=== PATIENT | female | born 1965 | race Caucasian/White ===

== ENCOUNTER 2023-05-29 12:51 | Emergency (ER) | payer BC, SELFPAY ==
[2023-05-29 12:55] VITALS: BP 194/104
[2023-05-29 13:16] LABS: % Basophils 0.5 % (0-2); % Eosinophils 1.5 % (0-6); % Immature Granulocytes 0.1 % (0-0.5); % Lymphocytes 18.2 % (20.5-51.1); % Monocytes 8.6 % (1.7-9.3); % Neutrophils 71.1 % (42.2-75.2); Absolute Eosinophils 0.1 10^3/uL (0-0.7); Absolute Lymphocytes 1.3 10^3/uL (1.2-3.4); Absolute Monocytes 0.6 10^3/uL (0.1-0.6); Absolute Neutrophils 5.2 10^3/uL (1.4-6.5); Hematocrit 37.9 % (37.0-47.0); Hemoglobin 13.2 g/dL (12.0-16.0); Mean Corp Hgb Conc. 34.8 g/dL (33.0-37.0); Mean Corpuscular Hgb 30.1 pg (27.0-31.0); Mean Corpuscular Volume 86.3 fL (81.0-99.0); Mean Platelet Volume 8.4 fL (7.4-10.4); Nucleated Red Blood Cells % 0 %; Platelet Count 347 10^3/uL (130-400); Red Blood Cell Count 4.39 10^6/uL (4.20-5.40); Red Cell Dist. Width 12.5 % (11.5-14.5); White Blood Cell Count 7.3 10^3/uL (4.8-10.8)
[2023-05-29 13:28] LABS: ALT (SGPT) 30 U/L (0-35); AST (SGOT) 35 U/L (14-36); Albumin 4.3 g/dl (3.5-5.0); Alkaline Phosphatase 75 U/L (38-126); Blood Urea Nitrogen 16 mg/dl (7-17); Calcium 9.3 mg/dl (8.4-10.2); Carbon Dioxide 25 mmol/L (22-30); Chloride 105 mmol/L (98-107); Glucose 191 mg/dl (70-99); Potassium 3.8 mmol/L (3.5-5.1); Sodium 137 mmol/L (135-145); Total Bilirubin 0.5 mg/dl (0.2-1.3); Total Protein 6.9 g/dl (6.3-8.2); eGFR > 60.00
[2023-05-29 13:38] LABS: Troponin I < 0.012 ng/ml
[2023-05-29 14:40] VITALS: BP 179/89
--- NOTE | 2023-05-29 15:13 | ED.GENMED ---
History of Present Illness
<Siri Fraire PA-C - Last Filed: 05/29/23 18:26>
General
Chief Complaint: Blood Pressure Problem
Source: patient
Exam Limitations: none
Time Seen by Provider: 05/29/23 15:09
Nursing documentation reviewed up to this point in time: agreed with
Travel History
Have you had any contact with someone who has COVID-19?: No
Do you have any symptoms of coronavirus? Fever > 100 degrees, chills, cough, shortness of breath, sore throat, loss of taste or smell, muscle aches, or headache?: No
History of Present Illness
History of Present Illness:
This is a 58-year-old female with a past medical history of hypertension, hypothyroidism hyperlipidemia resents to the emergency department today with chest discomfort high blood pressure. She states that the pain started yesterday when she was
sitting at home. She states that the pain feels like a pressure on her chest and is constant. She states that she has never had pain like this before. It is non-positional non-pleuritic. She also has associated occasional shortness of breath and
fatigue. She states that she always has high blood pressure, and it has always been uncontrolled despite being on multiple medications. She denies abdominal pain, back pain, nausea, vomiting, fevers, chills. She does have associated cough but no
other URI symptoms. She states that she used to use cigarettes frequently but has stopped within the last few years. She does not use alcohol. She does have a family history of heart disease in her father, brother, and grandmother. She states
that her father having heart disease in his 40s. Patient herself had an abnormal stress test for many years ago, and was sent for a coronary artery catheterization which showed no blockages. Patient has not seen a farm contractor since.
Past History
<Siri Fraire PA-C - Last Filed: 05/29/23 18:26>
Past History
ED Past Medical History: Asthma, HTN, Hypercholesterolemia, Hypothyroidism and Other (IBS)
ED Past Surgical History: Cholecystectomy, Gynecological (Partial Hysterectomy) and Orthopedic
Social History
Tobacco: Former smoker
Alcohol: None
Drug: None
Personal:
Living: with family
Employment: Employed
Review of Systems
<Siri Fraire PA-C - Last Filed: 05/29/23 18:26>
Review of Systems
All Other Systems: ROS reviewed and negative except as documented in HPI and ROS
Phy Exam
<Siri Fraire PA-C - Last Filed: 05/29/23 18:26>
Physical Exam
Physical Exam:
General: Patient appears well and is in no acute distress
Skin: warm and dry, no rashes or lesions
Cardiac: regular rate and rhythm, no murmurs. No tenderness to palpation of the external chest wall
Pulm: normal respiratory effort, no wheezes, rales or rhonci
Abdomen: no abdominal tendernes s
Scores
<Siri Fraire PA-C - Last Filed: 05/29/23 18:26>
Heart Score for Chest Pain Patients
STEMI patient?: No
History: Slightly or Non-Suspicious
ECG: Normal
Age: >45 - <65 years
Risk Factors: 1 or 2 Risk Factors
Troponin: </= Normal Limit
Heart Score for Chest Pain Patients: 2
Heart Score Risk: 2.5% MACE over next 6 weeks
PE Wells Score
Symptoms of DVT: No
No alternative diagnosis better explains the illness: No
Tachycardia with pulse > 100: No
Immobilization (>=3 days) or surgery within previous 4 weeks: No
Prior history of DVT or pulmonary embolism: Yes
Presence of hemoptysis: No
Presence of malignancy: No
Pulmonary Embolism Risk Score: 1.5
Probability of PE: Pt is low risk
<Aston Conrad DO - Last Filed: 05/29/23 19:41>
Heart Score for Chest Pain Patients
Heart Score for Chest Pain Patients: 2
Heart Score Risk: 2.5% MACE over next 6 weeks
PE Wells Score
Pulmonary Embolism Risk Score: 1.5
Probability of PE: Pt is low risk
Course
<Siri Fraire PA-C - Last Filed: 05/29/23 18:26>
Orders/Labs/Results
Orders:
Orders
05/29/23 12:56
Electrocardiogram (*1) Urgent
Reason for Study: Chest Pain
05/29/23 13:07
Complete Blood Count/With Diff Urgent
Comprehensive Metabolic Panel Urgent
Troponin I Urgent
05/29/23 15:37
Aspirin 325 mg PO NOW STA
CR Chest - 2 Views Urgent
Comment:
Reason For Exam: chest pain, SOB
05/29/23 15:42
Vital Signs- Treatment ONCE
Frequency: Once
Comment: blood pressure recheck
Abnormal Lab Results
05/29/23
13:07
Lymphocytes % 18.2 L %
(20.5-51.1)
Creatinine 0.5 L mg/dL
(0.6-1.0)
Glucose 191 H mg/dl
(70-99)
05/29/23 13:07
05/29/23 13:07
Vital Signs
Initial and Last Documented VS:
Initial Vital Signs
Temp Pulse Resp BP Pulse Ox
98.1 F 91 18 194/104 98
05/29/23 12:55 05/29/23 12:55 05/29/23 12:55 05/29/23 12:55 05/29/23 12:55
Last Documented Vital Signs
Temp Pulse Resp BP Pulse Ox
98.1 F 79 17 164/84 99
05/29/23 12:55 05/29/23 15:51 05/29/23 15:51 05/29/23 15:51 05/29/23 15:51
<Aston AdrianoPrincess Conrad, DO - Last Filed: 05/29/23 19:41>
Orders/Labs/Results
Orders:
Orders
05/29/23 12:56
Electrocardiogram (*1) Urgent
Reason for Study: Chest Pain
05/29/23 13:07
Complete Blood Count/With Diff Urgent
Comprehensive Metabolic Panel Urgent
Troponin I Urgent
05/29/23 15:37
Aspirin 325 mg PO NOW STA
CR Chest - 2 Views Urgent
Comment:
Reason For Exam: chest pain, SOB
05/29/23 15:42
Vital Signs- Treatment ONCE
Frequency: Once
Comment: blood pressure recheck
Abnormal Lab Results
05/29/23
13:07
Lymphocytes % 18.2 L %
(20.5-51.1)
Creatinine 0.5 L mg/dL
(0.6-1.0)
Glucose 191 H mg/dl
(70-99)
05/29/23 13:07
05/29/23 13:07
Vital Signs
Initial and Last Documented VS:
Initial Vital Signs
Temp Pulse Resp BP Pulse Ox
98.1 F 91 18 194/104 98
05/29/23 12:55 05/29/23 12:55 05/29/23 12:55 05/29/23 12:55 05/29/23 12:55
Last Documented Vital Signs
Temp Pulse Resp BP Pulse Ox
98.1 F 79 17 164/84 99
05/29/23 12:55 05/29/23 15:51 05/29/23 15:51 05/29/23 15:51 05/29/23 15:51
<Siri Fraire PA-C - Last Filed: 05/29/23 18:26>
MDM/Problems Addressed
Differential Diagnosis Includes:
Differentials include ACS, GERD, PE, musculoskeletal sprain/strain, pneumonia
MDM/Problems Addressed:
Chest discomfort
Chronic conditions affecting care: HTN, Asthma, Psychiatric illness and Other (hypothyroidism)
<Siri Fraire PA-C - Last Filed: 05/29/23 18:26>
*Pulse Oximetry
Patient hypoxic: no
*EKG
Interpreted by ED Provider?: Yes
EKG Intrepretation Date: 05/29/23
Interpretation: normal
Comparison EKG: changes noted
Heart Rate: 87
Rate: normal
Rhythm: sinus
[place]: normal axis
Interval: long QT
QRS Pattern: normal QRS
Ischemia: no ischemia
*Critical Care Note
Total Time (30-74mins, 75-104mins- exclusive of procedures): Not Applicable
Data Reviewed
Review of Other/Old Records Reveals: Discharge Summary (Reviewed discharge summary from 04/03/2022, patient was hospitalized with abdominal pain with intractable vomiting)
Prescriptions/Medications Considered But Not Given:
n/a
Further Testing Considered But Not Given:
Considered obtaining D-dimer however patient clinical picture does not correlate with PE, does not have any risk factors, and she is low risk via Wells score
<Siri Fraire PA-C - Last Filed: 05/29/23 18:26>
Patient Management
Escalation/DeEscalation of care consider admission/obs:
This is a 58-year-old female with a past medical history of hypothyroidism, asthma, hypertension, lifting presents emergency department today with 2 days of chest pain and concerned about rib blood pressure. He describes her pain as a pressure
which is constant. She has not had pain like this before. On physical exam, she is hypertensive however not tachycardic and not hypoxic. Physical exam is unremarkable, her chest pain is not reproducible on exam, she has no murmur, and her lung
sounds are clear to auscultation bilaterally. Patient states that her blood pressure has never been optimally controlled and she states that her blood pressure at home is always elevated despite the use of multiple hypertensive agents. Patient
does not follow with a farm contractor. We discharged her with the chest pain hotline CBC follow-up and advise her to call the number she has not per mobile application tester. We also advised her to start taking 600 mg of labetalol daily until she sees the
farm contractor. Patient is medically stable for discharge.
ED Attending Note
<Siri Fraire PA-C - Last Filed: 05/29/23 18:26>
-
Portions of this chart may have been created with voice recognition software.� Occasional wrong word or��sound alike� substitutions may have occurred due to the inherent limitations of voice recognition software.
<Aston Conrad DO - Last Filed: 05/29/23 19:41>
ED Attending Note
Patient seen and examined by attending physician: Yes
I performed the substantive portion of visit, reviewed & personally made and approve the management plan that is documented in note by myself or ALLAN.: Yes
ED Attending Note:
I agree with bettye note
Patient presents with elevated blood pressure and vague chest discomfort. Patient's symptoms have been present since yesterday. Nothing seems to make the chest discomfort better or worse. She was at a supervisor incising office yesterday where they
noted her blood pressure to be elevated. They recommend she measure her blood pressure and follow-up with primary care doctor. This morning she took her blood pressure and it was in the 190s prompting her to call her primary. They referred her to
the emergency room. Patient denies any recent periods of immobilization, hospitalization or long travel.
General: Awake, Alert, Oriented X3. No acute distress.
Vitals: Most recent BP 164/84
Head: Atraumatic
Eyes: Pupils equal, EOMI
Throat: Airway intact, no exudates
Neck: Trachea midline
Lungs: Clear and equal b/l
Heart: Regular rate, no murmurs
Abd: Soft, Nontender, No pulsatile mass
Neuro: Cranial nerves intact, muscle strength equal bilaterally, cerebellar exam normal
Skin: Warm, dry, no rash
Extremities: pulses equal b/l, no edema
Hypertension which is not well-controlled. Troponin is normal. Patient has been having discomfort since yesterday and so repeat troponin not necessary. We will have patient follow cardiology. She is on at least 3 medications for hypertension and
it is not well-controlled so I will feel she needs evaluation for secondary causes of hypertension. Patient will increase labetalol to 300 mg twice a day until she is able to follow-up with cardiology and her primary
Discharge Plan
Departure
Patient Disposition: Home (Routine Discharge)
Date of Disposition: 05/29/23
Time of Disposition: 16:55
Patient with high blood pressure during this ER visit?: Yes
Discharge Problem:
Chest pain
Instructions: High Blood Pressure (DC), Chest Pain CBC Follow Up
Prescriptions:
No Action
tramadol 50 MG tablet
100 mg PO DAILYPRN PRN (Reason: severe pain)
zolpidem 10 MG tablet
10 mg PO HSPRN PRN (Reason: insomnia)
fluoxetine 20 MG capsule
40 mg PO DAILY
fenofibrate nanocrystallized 145 MG tablet
145 mg PO HS
multivitamin with folic acid [Tab-A-Al] 1 TABLET tablet
1 tab PO DAILY
levothyroxine 75 mcg Tablet
75 mcg PO DAILY AT 0700
carbamazepine 200 mg Tablet
200 mg PO HS
amlodipine [Norvasc] 10 mg Tablet
10 mg PO BID
pantoprazole [Protonix] 40 mg Tablet,Delayed Release (Dr/Ec)
40 mg PO BID
montelukast [Singulair] 10 mg Tablet
10 mg PO DAILY
losartan 100 mg Tablet
100 mg PO DAILY
labetalol 200 mg Tablet
200 mg PO BID
diclofenac sodium 1 % Gel
1 ea TOPICAL DAILYPRN PRN (Reason: knees, hands, lower back)
Anoro Ellipta 62.5-25 mcg/actuation Blister With Device
1 inh INHALATION R DAILY
Medical Marijuana
1 puff inhalation BIDPRN PRN (Reason: body pain)
dicyclomine 20 mg Tablet
20 mg PO QID Qty: 80 0RF
prochlorperazine maleate [Compazine] 5 mg tablet
5 mg PO TID PRN (Reason: nausea and vomiting) Qty: 30 0RF
Referrals:
Clay Goldman DO [Family Provider] -
Activity Restrictions/Additional Instructions:
As discussed, please follow up with cardiology, you will receive a call to set up an appointment. Please begin taking 300 mg of your labetolol twice a day until you have follow up with your farm contractor.
Please call the number you have for the mobile application tester for an appointment.
Please return to the emergency department should you experience worsening of your symptoms, chest pain that does not resolve, worsening shortness of breath, lightheadedness, dizziness, motor weakness, back pain, other concerning signs or symptoms.
Interventions
Interventions:
*Risk Screen - Suicide Last Done: 05/29/23 12:55
*General Assessment Last Done: 05/29/23 14:40
*Neglect/Abuse Screening Last Done: 05/29/23 12:55
*ED COVID-19 Vaccine History Last Done: 05/29/23 12:55
*Nursing Disposition Last Done: 05/29/23 17:00
ED- Cardiac Assessment Last Done: 05/29/23 14:40
ED- Neurological Assessment Last Done: 05/29/23 14:40
ED- Pulmonary Assessment Last Done: 05/29/23 14:40
Discharge Date and Time
Discharge Date/Time: 05/29/23 17:01
[2023-05-29] MEDS: ASPIRIN 325 MG PO (15:41)
[2023-05-29 15:51] VITALS: BP 164/84
== END 2023-05-29 17:01 | disposition home or self-care (01) ==
LOC: EMR 12:51
PROVIDERS: Emergency Medicine; EMERGENCY PHYSICIAN Emergency Medicine; FAMILY PHYSICIAN Internal Medicine
DX: R07.89 Other chest pain (principal); I10 Essential (primary) hypertension; E03.9 Hypothyroidism, unspecified; E78.00 Pure hypercholesterolemia, unspecified; Z87.891 Personal history of nicotine dependence
CPT/HCPCS: 99285; 71046; 80053; 84484; 85025; 93005

== ENCOUNTER → 2023-06-07 11:50 | Outpatient (REF) | payer BC, SELFPAY | LOC: DHCBC/DCA 11:50 | PROVIDERS: ATTENDING PHYSICIAN Internal Medicine Cardiovascular Disease; FAMILY PHYSICIAN Internal Medicine | DX: R07.2 Precordial pain (principal) | CPT/HCPCS: 78452; 93017; A9500; J2785 ==

== ENCOUNTER → 2023-06-19 12:53 | Outpatient (REF) | payer BC, SELFPAY | LOC: DHCBC HW 12:53 | PROVIDERS: ATTENDING PHYSICIAN Internal Medicine Cardiovascular Disease; FAMILY PHYSICIAN Internal Medicine | DX: R07.2 Precordial pain (principal); R06.00 Dyspnea, unspecified | CPT/HCPCS: 93306 ==

== ENCOUNTER 2024-02-06 22:54 | Observation (INO) | payer BC, SELFPAY ==
[2024-02-06] VITALS (7 sets, daily range): BP systolic 145–186; BP diastolic 79–103; BMI 32.6
--- NOTE | 2024-02-06 16:36 | ED.GENMED ---
ED Provider Triage
<Janina Barajas PA-C - Last Filed: 02/06/24 16:38>
-
Patient seen by provider in Triage?: Seen in Triage
Attestation: A medical screening examination has been initiated by a qualified medical provider. Based on the assessment performed at this time, it has been determined that an emergent medical condition may exist and the patient has been informed
that further medical evaluation and possible additional diagnostic testing may be needed.
HPI: 59yoF here with nausea, dry heaving, abdominal pain, chest pain, and generalized weakness x 2 days. Received a Mounjaro shot 2 days ago which she has been taking since July. Hx of similar reaction to Ozempic for which she was reportedly
hospitalized for 10 days.
GENERAL: Alert , in no apparent distress
EYE: No visual abnormalities.
NECK: Trachea midline
ENT: No visible abnormalities.
LUNGS: No acute respiratory distress
NEUROLOGICAL: Alert and oriented
SKIN: Skin intact. No visible changes.
MUSCULOSKELETAL: Moving extremities normally
PSYCH: Normal and appropriate interaction.
This is a medical evaluation conducted in person to initiate diagnostic evaluation and provide initial therapeutics. Please see further documentation by the treating clinician.
History of Present Illness
<Janina Barajas PA-C - Last Filed: 02/06/24 16:38>
General
Chief Complaint: Abdominal Symptoms
Time Seen by Provider: 02/06/24 18:26
<Nickie Esposito NP - Last Filed: 02/08/24 18:54>
General
Source: patient
Exam Limitations: none
Nursing documentation reviewed up to this point in time: agreed with
History of Present Illness
History of Present Illness:
Patient to ED with complaint of nausea and vomiting x 3 days. Denies fever/chills. States chest and upper abd hurt from vomiting. She reports that she was on ozempic in the past and had a similar reaction. She was changed to Mounjaro in July.
Dose was increased 3 weeks ago but states she missed 2nd dose due to having surgerical procedure to her right arm. Had last dose just prior to her symptoms starting. Brought to ED by spouse for eval.
Past History
<Janina Barajas PA-C - Last Filed: 02/06/24 16:38>
Past History
ED Past Medical History: Asthma, HTN, Hypercholesterolemia, Hypothyroidism and Other (IBS)
ED Past Surgical History: Cholecystectomy, Gynecological (Partial Hysterectomy) and Orthopedic
Social History
Tobacco: Former smoker
Alcohol: None
Drug: None
Personal:
Living: with family
Employment: Employed
Phy Exam
<Nickie Esposito NP - Last Filed: 02/08/24 18:54>
General Physical Exam
General Presentation: moderate distress
General age: appears stated age
General Skin: warm and dry
General Habitus: normal
General Mental: alert
General Hydration: dry mucous membranes
Cardiovascular Exam
Cardiovascular Exam: regular rate/rhythm and no edema
Pulmonary Exam
Pulmonary Exam: lungs clear and no respiratory distress
Gastrointestinal Exam
Gastrointestinal Exam: normal bowel sounds, soft, no organomegaly and non distended
Palpation: generalized: Mild tenderness
Neurological Exam
Neurological Exam: alert, oriented x3, CN II-XII intact and no motor deficits
Musculoskeletal Exam
Musculoskeletal Exam: full ROM (RUE casted) and neuro vasc intact
Skin Exam
Skin Exam: normal color, warm/dry and no rash
Psychiatric Exam
Psychiatric Exam: normal mood/affect
Course
<Janina Barajas PA-C - Last Filed: 02/06/24 16:38>
Orders/Labs/Results
Orders:
Orders
02/06/24 16:23
Electrocardiogram (*1) Urgent
Reason for Study: Chest Pain
EKG- Treatment ONCE
02/06/24 16:38
CT Abd/pelvis W Iv Cont Urgent
Comment:
Reason For Exam: Upper abd pain
CR Chest - 2 Views Urgent
Comment:
Reason For Exam: CP
02/06/24 16:44
Complete Blood Count/With Diff Urgent
Comprehensive Metabolic Panel Urgent
Lipase Urgent
Magnesium Urgent
Troponin I Urgent
02/06/24 19:30
Electrocardiogram (*1) Urgent
Reason for Study: Chest Pain
EKG- Treatment ONCE
0.9% Sodium Chloride 1000 ml [Nss] 1,000 ml IV BOLUS
Ondansetron Injectable [Zofran] 4 mg IV NOW STA
02/06/24 19:39
Troponin I Urgent
02/06/24 20:54
Ketorolac [Toradol] 15 mg IV NOW STA
Prochlorperazine [Compazine] 10 mg IV NOW STA
02/06/24 21:00
0.9% Sodium Chloride 1000 ml [Nss] 1,000 ml IV 125 mls/hr
02/06/24 21:01
Pantoprazole [Protonix IV] 40 mg IV NOW STA
02/06/24 21:02
Potassium Chloride [KCl] 40 meq 0.9% Sodium Chloride 250 ml [Nss] 250 ml IV NOW
02/06/24 21:20
Add On- LAB Urgent
Tests Added?: magnesium
02/06/24 21:44
Admit/Transfer Patient As Directed
Co-Sign Provider:
Level of Care: Observation services
Assign to:: Telemetry
Physician / Group: maggie alegria
Diagnosis: intractable nausea vomiting abd due to likely mounjaro motlity eff,transam
Reason for Telemetry: Arrhythmia
Date to Stop Telemetry: 02/09/24
Time to Stop Telemetry: 11:00
Reason for Hospitalization: intractable nausea vomiting abd due to likely mounjaro motlity eff,transam
Code Status As Directed
Resuscitation Status: Full Code
02/06/24 21:49
PRN Pain Medication Management As Directed
May give lesser potent ordered pain med per pt: Yes
preference::
Protocol:: Medication orders for pain may be administered in a
manner that supports deferring to patient preference
when the pt is:
- Requesting an ordered lesser potent pain medication.
Least to most potent pain medications are defined
as: acetaminophen < NSAID < tramadol < opioids
(morphine, oxycodone, hydromorphone).
- Requesting a lesser dose of the same medication IF
ORDERED.
- Requesting a less intrusive route of administration
if both routes are prescribed by the provider (PO <
IV).
02/06/24 21:52
Potassium Chloride [KCl] 40 meq PO NOW STA
02/06/24 22:03
Consult Notification Routine
Specialty to Notify: Gastroenterology
GASTROINTESTINAL CONSULT Routine
Consulting Provider: Nikko Monsalve
Was physician already notified: No
Reason for consult: intract nausea vomitng after mounjaro increased dose
02/07/24 00:59
Albuterol [ProAIR HFA INHALER] 1 puff INH R Q4HPRN PRN
Trimethobenzamide [Tigan] 200 mg IM Q6HPRN PRN
02/07/24 00:59
Activity As Directed
Activity Level: As Tolerated
Intake/ Output As Directed
Frequency: Per unit guidelines
Pneumatic Compression Sleeves As Directed
Type: Knee high
Vital Signs As Directed
Frequency: Per unit guidelines
DX Deep Vein Thrombosis Video Routine
02/07/24 04:00
0.9% Sodium Chloride 1000 ml [Nss] 1,000 ml IV 100 mls/hr
02/07/24 05:16
Complete Blood Count/With Diff IN AM
02/07/24 06:00
Levothyroxine [Synthroid] 75 mcg PO DAILY @ 0600
02/07/24 08:00
Amlodipine [Norvasc] 10 mg PO DAILY
Budesonide/Formoterol 80/4.5 [Symbicort 80/4.5 Mcg Inhaler] 2 puff INH R BID
Labetalol [Trandate] 300 mg PO BID
Losartan [Cozaar] 100 mg PO DAILY
Pantoprazole [Protonix] 40 mg PO BID
02/07/24 Dinner
Clear Liquid
At Your Request: Full Participation
02/09/24 11:00
DC Protocol for Telemetry ONCE
Abnormal Lab Results
02/06/24
16:44
WBC 12.7 H 10^3/uL
(4.8-10.8)
Plt Count 514 H 10^3/uL
(130-400)
Abs Immat Gran (auto) 0.1 H 10^3/uL
(0-0.05)
Absolute Neuts (auto) 9.4 H 10^3/uL
(1.4-6.5)
Absolute Monos (auto) 1.2 H 10^3/uL
(0.1-0.6)
Lymphocytes % 15.4 L %
(20.5-51.1)
Monocytes % 9.6 H %
(1.7-9.3)
Potassium 3.1 L mmol/L
(3.5-5.1)
Chloride 96 L mmol/L
(98-107)
BUN 24 H mg/dl
(7-17)
Glucose 131 H mg/dl
(70-99)
AST 221 H U/L
(14-36)
ALT 77 H U/L
(0-35)
02/06/24 16:44
02/06/24 16:44
Vital Signs
Initial and Last Documented VS:
Initial Vital Signs
Temp Pulse Resp BP Pulse Ox
98.2 F 105 18 145/103 99
02/06/24 16:20 02/06/24 16:20 02/06/24 16:20 02/06/24 16:20 02/06/24 16:20
Last Documented Vital Signs
Temp Pulse Resp BP Pulse Ox
99.2 F 94 18 158/82 98
02/08/24 17:22 02/08/24 15:00 02/08/24 15:00 02/08/24 15:00 02/08/24 15:00
<Nickie Esposito, STERILE SUPERVISOR - Last Filed: 02/08/24 18:54>
Orders/Labs/Results
Orders:
Orders
02/06/24 16:23
Electrocardiogram (*1) Urgent
Reason for Study: Chest Pain
EKG- Treatment ONCE
02/06/24 16:38
CT Abd/pelvis W Iv Cont Urgent
Comment:
Reason For Exam: Upper abd pain
CR Chest - 2 Views Urgent
Comment:
Reason For Exam: CP
02/06/24 16:44
Complete Blood Count/With Diff Urgent
Comprehensive Metabolic Panel Urgent
Lipase Urgent
Magnesium Urgent
Troponin I Urgent
02/06/24 19:30
Electrocardiogram (*1) Urgent
Reason for Study: Chest Pain
EKG- Treatment ONCE
0.9% Sodium Chloride 1000 ml [Nss] 1,000 ml IV BOLUS
Ondansetron Injectable [Zofran] 4 mg IV NOW STA
02/06/24 19:39
Troponin I Urgent
02/06/24 20:54
Ketorolac [Toradol] 15 mg IV NOW STA
Prochlorperazine [Compazine] 10 mg IV NOW STA
02/06/24 21:00
0.9% Sodium Chloride 1000 ml [Nss] 1,000 ml IV 125 mls/hr
02/06/24 21:01
Pantoprazole [Protonix IV] 40 mg IV NOW STA
02/06/24 21:02
Potassium Chloride [KCl] 40 meq 0.9% Sodium Chloride 250 ml [Nss] 250 ml IV NOW
02/06/24 21:20
Add On- LAB Urgent
Tests Added?: magnesium
02/06/24 21:44
Admit/Transfer Patient As Directed
Co-Sign Provider:
Level of Care: Observation services
Assign to:: Telemetry
Physician / Group: maggie alegria
Diagnosis: intractable nausea vomiting abd due to likely mounjaro motlity eff,transam
Reason for Telemetry: Arrhythmia
Date to Stop Telemetry: 02/09/24
Time to Stop Telemetry: 11:00
Reason for Hospitalization: intractable nausea vomiting abd due to likely mounjaro motlity eff,transam
Code Status As Directed
Resuscitation Status: Full Code
02/06/24 21:49
PRN Pain Medication Management As Directed
May give lesser potent ordered pain med per pt: Yes
preference::
Protocol:: Medication orders for pain may be administered in a
manner that supports deferring to patient preference
when the pt is:
- Requesting an ordered lesser potent pain medication.
Least to most potent pain medications are defined
as: acetaminophen < NSAID < tramadol < opioids
(morphine, oxycodone, hydromorphone).
- Requesting a lesser dose of the same medication IF
ORDERED.
- Requesting a less intrusive route of administration
if both routes are prescribed by the provider (PO <
IV).
02/06/24 21:52
Potassium Chloride [KCl] 40 meq PO NOW STA
02/06/24 22:03
Consult Notification Routine
Specialty to Notify: Gastroenterology
GASTROINTESTINAL CONSULT Routine
Consulting Provider: Nikko Monsalve
Was physician already notified: No
Reason for consult: intract nausea vomitng after mounjaro increased dose
02/07/24 00:59
Albuterol [ProAIR HFA INHALER] 1 puff INH R Q4HPRN PRN
Trimethobenzamide [Tigan] 200 mg IM Q6HPRN PRN
02/07/24 00:59
Activity As Directed
Activity Level: As Tolerated
Intake/ Output As Directed
Frequency: Per unit guidelines
Pneumatic Compression Sleeves As Directed
Type: Knee high
Vital Signs As Directed
Frequency: Per unit guidelines
DX Deep Vein Thrombosis Video Routine
02/07/24 04:00
0.9% Sodium Chloride 1000 ml [Nss] 1,000 ml IV 100 mls/hr
02/07/24 05:16
Complete Blood Count/With Diff IN AM
02/07/24 06:00
Levothyroxine [Synthroid] 75 mcg PO DAILY @ 0600
02/07/24 08:00
Amlodipine [Norvasc] 10 mg PO DAILY
Budesonide/Formoterol 80/4.5 [Symbicort 80/4.5 Mcg Inhaler] 2 puff INH R BID
Labetalol [Trandate] 300 mg PO BID
Losartan [Cozaar] 100 mg PO DAILY
Pantoprazole [Protonix] 40 mg PO BID
02/07/24 Dinner
Clear Liquid
At Your Request: Full Participation
02/09/24 11:00
DC Protocol for Telemetry ONCE
Abnormal Lab Results
02/06/24
16:44
WBC 12.7 H 10^3/uL
(4.8-10.8)
Plt Count 514 H 10^3/uL
(130-400)
Abs Immat Gran (auto) 0.1 H 10^3/uL
(0-0.05)
Absolute Neuts (auto) 9.4 H 10^3/uL
(1.4-6.5)
Absolute Monos (auto) 1.2 H 10^3/uL
(0.1-0.6)
Lymphocytes % 15.4 L %
(20.5-51.1)
Monocytes % 9.6 H %
(1.7-9.3)
Potassium 3.1 L mmol/L
(3.5-5.1)
Chloride 96 L mmol/L
(98-107)
BUN 24 H mg/dl
(7-17)
Glucose 131 H mg/dl
(70-99)
AST 221 H U/L
(14-36)
ALT 77 H U/L
(0-35)
02/06/24 16:44
02/06/24 16:44
Vital Signs
Initial and Last Documented VS:
Initial Vital Signs
Temp Pulse Resp BP Pulse Ox
98.2 F 105 18 145/103 99
02/06/24 16:20 02/06/24 16:20 02/06/24 16:20 02/06/24 16:20 02/06/24 16:20
Last Documented Vital Signs
Temp Pulse Resp BP Pulse Ox
99.2 F 94 18 158/82 98
02/08/24 17:22 02/08/24 15:00 02/08/24 15:00 02/08/24 15:00 02/08/24 15:00
Dominiclt;Nickie Esposito NP - Last Filed: 02/08/24 18:54>
*Radiology
Radiology exam reviewed: radiology read reviewed
*Pulse Oximetry
Patient hypoxic: no
*Critical Care Note
Total Time (30-74mins, 75-104mins- exclusive of procedures): Not Applicable
ED Attending Note
<Janina Barajas PA-C - Last Filed: 02/06/24 16:38>
-
Portions of this chart may have been created with voice recognition software.� Occasional wrong word or��sound alike� substitutions may have occurred due to the inherent limitations of voice recognition software.
Discharge Plan
Departure
Patient Disposition: Admit
Date of Disposition: 02/06/24
Time of Disposition: 21:22
Presentation/result/management discussed w/ accepting MD/DO: Hospitalist
Patient with high blood pressure during this ER visit?: No
Condition: Fair
Covid-19: Not Applicable
Discharge Problem:
Intractable nausea and vomiting
Interventions
Interventions:
*Risk Screen - Suicide Last Done: 02/06/24 16:20
*General Assessment Last Done: 02/06/24 16:20
*Neglect/Abuse Screening Last Done: 02/06/24 16:20
ED- Fall Risk Assessment Last Done: 02/06/24 17:37
*ED COVID-19 Vaccine History Last Done: 02/06/24 16:20
*Nursing Disposition Last Done: 02/07/24 05:30
IJ-Lzrame-Nvsjweipsm Assessment Last Done: 02/06/24 17:37
Discharge Date and Time
Discharge Date/Time: 02/07/24 15:00
[2024-02-06 16:58] LABS: % Basophils 0.5 % (0-2); % Eosinophils 0.1 % (0-6); % Immature Granulocytes 0.4 % (0-0.5); % Lymphocytes 15.4 % (20.5-51.1); % Monocytes 9.6 % (1.7-9.3); Absolute Basophils 0.1 10^3/uL (0-0.2); Absolute Immature Granulocytes 0.1 10^3/uL (0-0.05); Absolute Monocytes 1.2 10^3/uL (0.1-0.6); Absolute Neutrophils 9.4 10^3/uL (1.4-6.5); Hematocrit 38.2 % (37.0-47.0); Hemoglobin 13.7 g/dL (12.0-16.0); Mean Corp Hgb Conc. 35.9 g/dL (33.0-37.0); Mean Corpuscular Hgb 29.5 pg (27.0-31.0); Mean Corpuscular Volume 82.3 fL (81.0-99.0); Mean Platelet Volume 8.5 fL (7.4-10.4); Nucleated Red Blood Cells % 0 %; Platelet Count 514 10^3/uL (130-400); Red Blood Cell Count 4.64 10^6/uL (4.20-5.40); Red Cell Dist. Width 12.1 % (11.5-14.5); White Blood Cell Count 12.7 10^3/uL (4.8-10.8)
[2024-02-06 17:08] LABS: ALT (SGPT) 77 U/L (0-35); AST (SGOT) 221 U/L (14-36); Albumin 4.9 g/dl (3.5-5.0); Alkaline Phosphatase 52 U/L (38-126); Blood Urea Nitrogen 24 mg/dl (7-17); Calcium 9.9 mg/dl (8.4-10.2); Carbon Dioxide 26 mmol/L (22-30); Glucose 131 mg/dl (70-99); Lipase 150 U/L (23-300); Total Bilirubin 0.7 mg/dl (0.2-1.3); Total Protein 7.5 g/dl (6.3-8.2); eGFR > 60.00
[2024-02-06 17:20] LABS: Chloride 96 mmol/L (98-107); Potassium 3.1 mmol/L (3.5-5.1); Sodium 138 mmol/L (135-145)
[2024-02-06] MEDS: ZOFRAN 4 MG IV (19:42)
[2024-02-06] MEDS: NSS 1000 IV ×2 (19:43→21:19)
[2024-02-06 20:16] LABS: Troponin I 0.017 ng/ml
[2024-02-06] MEDS: PROTONIX IV 40 MG IV (21:15)
[2024-02-06] MEDS: COMPAZINE 10 MG IV (21:16)
[2024-02-06] MEDS: TORADOL 15 MG IV (21:18)
[2024-02-06] MEDS: KCL 270 MEQ IV (21:20)
--- NOTE | 2024-02-06 21:45 | HPS.HSE ---
Family Physician
-
Family Physician: Clay Goldman
Chief Complaint
-
intractable vomiting.
History of Present Illness
59F on Medical marijuana, HX DM, HTN, HLD, Asthma , Hypothyroid, Depression pw nausea, dry heaving, abdominal pain, chest pain, and generalized weakness x 2 days.
Received a Mounjaro shot 2 days ago which she has been taking since July.
Hx of similar reaction to Ozempic for which she was reportedly hospitalized for 10 days.
Medical History
Past Medical History
Past Medical History: Reports Other
Additional Past Medical History:
Fibromyalgia / ? Arthritis
Hypertension
Obesity
DM-II
RICHARD
GERD
Anxiety / Depression
Hypothyroidism
Past Surgical History: Reports Other
Additional Past Surgical History:
ROZ
Cholecystectomy
Left Elbow Surgery
Social History
Tobacco: Former Smoker (Quit smoking 4 years ago. Approx 40 pack years total. Currently vapes / medicinal marijuana.)
Alcohol: None
Family History
Family History: Other (Family history of CAD, DM, Cancer.)
Allergies / Home Medications
Allergies reflects when Allergies were last updated in [facility].
Home Medications with original date entered in [facility]
Allergy/Medication List:
Allergies
Allergy/AdvReac Type Severity Reaction Status Date / Time
semaglutide [From Ozempic] Allergy Nausea / Verified 03/28/22 02:30
Vomiting
Home Medications
cannabidiol 100 mg/mL oral solution (Epidiolex) 2 - 3 puff inhalation DAILYPRN PRN pain 07/02/19
cannabidiol 100 mg/mL oral solution (Epidiolex) 2 drops PO DAILYPRN PRN pain 07/02/19
diclofenac sodium 1 % topical gel (Voltaren) 2 gm topical TIDPRN PRN joint pain 07/02/19
fenofibrate nanocrystallized 145 mg tablet 145 mg PO HS 07/02/19
fluoxetine 20 mg capsule 40 mg PO DAILY 07/02/19
gabapentin 300 mg capsule 145 mg PO HS 07/02/19
multivitamin with folic acid 400 mcg tablet (Tab-A-Al) 1 tab PO DAILY 07/02/19
tramadol 50 mg tablet 100 mg PO DAILYPRN PRN severe pain 07/02/19
zolpidem 10 mg tablet 10 mg PO HSPRN PRN insomnia 07/02/19
amlodipine 10 mg PO AMHS 03/28/22
carbamazepine 200 mg PO HS 03/28/22
levothyroxine 75 mcg tablet 75 mcg PO DAILY 03/28/22
losartan 100 mg PO DAILY 03/28/22
montelukast 10 mg PO DAILY 03/28/22
pantoprazole 40 mg PO BID 03/28/22
Review of Systems
-
History Source: Patient
A 12 point ROS was completed and negative except as noted: Yes
Constitutional: Reports Fatigue; Denies Fever or Chills
EENT: Denies Sore Throat
Respiratory: Denies Cough or Trouble Breathing
Cardiac: Denies Chest Pain or Palpitations
Abdomen/GI: Reports Abdominal Pain, Nausea and Vomiting; Denies Bloody Stools or Black Stools
: Denies Dysuria, Frequency or Flank Pain
Neurological: Denies Dizzy or Headache
Psych: Denies Depression or Anxiety
Physical Exam
Vital Signs
Vital Signs
Temp Pulse Resp BP Pulse Ox
98.2 F 95 26 178/79 99
02/06/24 16:20 02/06/24 21:15 02/06/24 21:15 02/06/24 21:10 02/06/24 21:15
Physical Exam
General: Other (57y F in moderate distress due to nausea)
HEENT: Moist mucous membranes, PERRLA and Other (Thick neck)
Respiratory: Clear; No Wheezes, Rales or Rhonchi
Cardiac: S1/S2 and Regular Rhythm; No Murmur
GI: Soft, Non Tender, Non Distended and Normal Bowel Sounds
Musculoskeletal: No Clubbing, No Cyanosis and No Edema
Neuro: AO x 3
Laboratory Results
-
02/06/24 16:44
02/06/24 16:44
Laboratory Results
Total Bilirubin 0.7 mg/dl (0.2-1.3) 02/06/24 16:44
AST 221 U/L (14-36) H 02/06/24 16:44
ALT 77 U/L (0-35) H 02/06/24 16:44
Alkaline Phosphatase 52 U/L (38-126) 02/06/24 16:44
Troponin I 0.017 ng/ml 02/06/24 19:39
Lipase 150 U/L (23-300) 02/06/24 16:44
Data Reviewed
-
CT Scan: Report Reviewed by me
Medical Tests (Nuc Med, Echo, EKG etc): Report Reviewed by me
Lab Data: Labs Reviewed by me
Old Records: Reviewed
Impression/Plan
-
Vital Signs
Temp Pulse Resp BP Pulse Ox
98.2 F 95 26 178/79 99
02/06/24 16:20 02/06/24 21:15 02/06/24 21:15 02/06/24 21:10 02/06/24 21:15
Laboratory Tests
05/29/23 02/06/24 02/06/24
13:07 16:44 19:39
WBC 12.7 H
Plt Count 347 514 H
Potassium 3.1 L
Chloride 96 L
BUN 24 H
Creatinine 0.7
eGFR > 60.00
AST 35 221 H
ALT 30 77 H
Troponin I 0.017
CXR: No active cardiopulmonary disease
CT Abd/pelvis W Iv Cont
Normal post cholecystectomy abdomen
Imaging for bowel pathology is limited by the lack of enteric contrast
EKG report
NORMAL SINUS RHYTHM
NONSPECIFIC ST ABNORMALITY
PROLONGED QT
ABNORMAL ECG
WHEN COMPARED WITH ECG OF 29-MAY-2023 13:02,
Aberrant conduction IS NO LONGER PRESENT
Confirmed by FRANCO BARROS MD ([id number]) on 02/06/2024 7:52:31 PM
Last hospitalist admission:
DATE OF ADMISSION: 03/28/2022 - DATE OF DISCHARGE: 04/03/2022
DISCHARGE DIAGNOSES:
1. Abdominal pain and suspected intractable nausea and vomiting secondary to gastric dysmotility, likely community of
medication effect including Ozempic, marijuana and opiates.
2. Mild hypokalemia.
ASSESSMENT & PLAN
Pending Rx reconciliation
Intractable N/V with abdominal Pain
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
On SQ Mounjaro 10 mg q week for last 2 weeks
- s/p 1 L NS at ER
- stop Mounjaro
- supportive care with IVF NS @100/H antiemetics, etc.
- Held Meloxicam
- Observe in the hospital for additional symptom control and eventual clinical improvement.
Acute Transaminitis DDX acute ischemic liver injury
- Trend LFTs in response to IVF
Mild Hypokalemia
- Held HCTZ
- Likely secondary to GI losses as noted above.
- Replace with IVF and follow for improvement.
Benign Hypertension
- Significantly elevated in the ED - likely due to acute distress / intractable nausea / etc.
- Continue outpatient antihypertensive regimen.
Fibromyalgia
- Stable.
- Continue outpatient med regimen.
T2DM
Obesity due to excess calories
- Hold further Mounjaro as noted above.
- Low SSI coverage as needed.
Hypothyroidism
- Stable.
- c/w LT4 supplementation.
DVT Prophylaxis: SCDs
Full code
IP TLM
[2024-02-06 21:51] LABS: Magnesium 2.1 mg/dl (1.6-2.3)
[2024-02-07] VITALS (17 sets, daily range): BP systolic 95–174; BP diastolic 64–105
[2024-02-07] MEDS: TIGAN 200 MG IM ×2 (01:22→07:41)
[2024-02-07] MEDS: AMBIEN 10 MG PO ×2 (01:27→22:18)
[2024-02-07] MEDS: MORPHINE SULFATE 1 MG IV (01:30)
[2024-02-07 06:04] LABS: % Basophils 0.6 % (0-2); % Eosinophils 0.5 % (0-6); % Immature Granulocytes 0.3 % (0-0.5); % Lymphocytes 23.4 % (20.5-51.1); % Neutrophils 62.2 % (42.2-75.2); Absolute Basophils 0.1 10^3/uL (0-0.2); Absolute Eosinophils 0.1 10^3/uL (0-0.7); Absolute Lymphocytes 2.2 10^3/uL (1.2-3.4); Absolute Monocytes 1.2 10^3/uL (0.1-0.6); Absolute Neutrophils 5.9 10^3/uL (1.4-6.5); Hematocrit 33.4 % (37.0-47.0); Hemoglobin 11.9 g/dL (12.0-16.0); Mean Corp Hgb Conc. 35.6 g/dL (33.0-37.0); Mean Corpuscular Hgb 30.4 pg (27.0-31.0); Mean Corpuscular Volume 85.4 fL (81.0-99.0); Mean Platelet Volume 8.4 fL (7.4-10.4); Nucleated Red Blood Cells % 0 %; Platelet Count 408 10^3/uL (130-400); Red Blood Cell Count 3.91 10^6/uL (4.20-5.40); Red Cell Dist. Width 12.1 % (11.5-14.5); White Blood Cell Count 9.6 10^3/uL (4.8-10.8)
[2024-02-07 06:23] LABS: Blood Urea Nitrogen 20 mg/dl (7-17); Calcium 8.6 mg/dl (8.4-10.2); Carbon Dioxide 22 mmol/L (22-30); Chloride 106 mmol/L (98-107); Estimated Creatinine Clearance 104 ml/min; Glucose 89 mg/dl (70-99); Potassium 3.2 mmol/L (3.5-5.1); Sodium 141 mmol/L (135-145); eGFR > 60.00
[2024-02-07] MEDS: NSS IV (06:35)
[2024-02-07] MEDS: SYMBICORT 80/4.5 MCG INHALER 2 PUFF INH ×2 (07:57→20:20)
[2024-02-07] MEDS: ProAIR HFA INHALER 1 PUFF INH (07:58)
--- NOTE | 2024-02-07 08:07 | CON.GI ---
Addendum entered and electronically signed by Nikko Monsalve MD 02/07/24 15:43:
I saw and examined the patient.
The PA's note was reviewed and I agree with the note.
Comment:
59 year old female with h/o hypothyroidism, HTN, GERD on chronic PPI, fibromyalgia with NSAID use, DM, and obesity on Mounjaro who p/w intractable nausea and vomiting. She also reported melena x1 in setting of NSAID use. Will plan for EGD for
further evaluation / intervention. Should d/c GLP-1 agonists.
Addendum entered and electronically signed by Viri Garcia NP 02/07/24 09:22:
IV lorazepam added by hospitalist, may help with nausea as well.
Original Note:
Consultation
-
Date/Time Consultation Requested: 02/06/24 @ 22:03
Date/Time Consultation Performed: 02/07/24 @ 08:30
Requesting Provider: MAGALI Bhakta
Performing Provider: MAGALI Adams; Dr. Nikko Monsalve
Reason for Consultation: intract nausea vomitng after mounjaro increased dose
Medical History
Chief Complaint / HPI
Chief Complaint: intractable vomiting
History of Present Illness:
The patient is a 59-year-old female with a past medical history significant for hypothyroidism, hypertension, GERD, fibromyalgia, hyperlipidemia, type 2 diabetes, obesity, anxiety, who presented to the hospital with complaints of intractable nausea
and vomiting which we are are being asked to evaluate for. Upon review of prior records, she was seen by our group in 2021 at that time with similar presentation of abdominal pain and vomiting after starting on Ozempic. She did undergo EGD at that
time with Dr. Dwyer which essentially was unrevealing. At that time she was advised to abstain from further Ozempic use given of suspected this was causing her symptoms. Today she reports she had started feeling unwell Saturday morning with nausea
and vomiting. She notes that she is on Mounjaro and had a recent arm surgery on 01/22, and had subsequently held a dose of her medication. She did take 1 dose and was feeling okay, but after her second dose on 02/02 she was feeling very ill. She
notes that she had been taking a lot of Advil recently for her right arm pain prior to her surgery. She also had been using aspirin intermittently along with meloxicam intermittently. She notes she had not taken any of these medications in the
last week because she was feeling unwell. She notes postoperatively she had some problems with constipation as she was on narcotics, and has been taking a stool softener, but despite this she has been having difficulty moving her bowels. Her last
bowel movement was 4 to 5 days ago. She notes that when she did pass some stool she did see black tarry stool at that time. She does admit to abdominal pain in the upper/epigastric area that is ongoing. She denies any hematemesis but notes that
she did see some dark coloration in her vomit at home. She has been had difficulty keeping food and liquids down given her intractable symptoms. She notes similar presentation a year ago and does not want to continue on Mounjaro any further. She
denies any use of blood thinners. Last EGD and colonoscopy as noted below. She does feel hot and cold but denies any fevers.
A CT of the abdomen and pelvis was done with IV contrast showing no significant findings. Chest x-ray showed no active cardiopulmonary disease. Routine labs on admission showed WBC 12.7, hemoglobin 13.7, platelets 514,000, sodium 138, potassium
3.1, BUN 24, creatinine 0.7, magnesium 2.1, total bilirubin 0.7, AST 221, ALT 77, alk phos 52, lipase 150, troponin negative x 2. She was placed on pantoprazole 40 mg twice daily and as needed antiemetics (with Tigan given her QTc findings), and
admitted for further evaluation by GI. QTc upon EKG was prolonged at 524 ms.
Past Medical History
Past Medical History: Asthma, Fibromyalgia, GERD, HTN, Hypothyroidism, NIDDM, Psychiatric (anxiety, depression) and Other
Past Surgical History: Cholecystectomy, Gynecological (hysterectomy), Orthopedic (left elbow surgery) and Other (Recent right arm surgery 01/23/2024)
Social History
Tobacco: Former Smoker
Alcohol: None
Drug: Marijuana (medical)
Family History
Family History: Reviewed & Not Pertinent
Allergies / Home Medications
Allergy/AdvReac Type Severity Reaction Status Date / Time
semaglutide [From Ozempic] Allergy Nausea / Verified 05/29/23 12:55
Vomiting
�Medication �Instructions �Recorded
fenofibrate nanocrystallized 145 145 mg PO HS High cholesterol 07/02/19
mg tablet
multivitamin with folic acid 400 1 tab PO DAILY Supplement 07/02/19
mcg tablet (Tab-A-Al)
zolpidem 10 mg tablet 10 mg PO HS 07/02/19
amlodipine 10 mg tablet (Norvasc) 10 mg PO DAILY Blood pressure 03/28/22
labetalol 200 mg tablet 300 mg PO BID Heart 03/28/22
disease/condition
levothyroxine 75 mcg tablet 75 mcg PO DAILY Thyroid 03/28/22
losartan 100 mg tablet 100 mg PO DAILY Blood pressure 03/28/22
pantoprazole 40 mg tablet,delayed 40 mg PO BID Gastrointestinal issue 03/28/22
release (Protonix)
Mounjaro 10 mg SC DIRECTED 02/06/24
albuterol sulfate 90 mcg/actuation 1 inh inhalation R Q4HPRN PRN sob 02/06/24
aerosol inhaler
budesonide-formoterol HFA 80 2 puff inhalation R BID 02/06/24
mcg-4.5 mcg/actuation aerosol
inhaler (Symbicort)
cholecalciferol (vitamin D3) 25 25 mcg PO DAILY 02/06/24
mcg (1,000 unit) tablet (Vitamin
D3)
hydrochlorothiazide 25 mg tablet 25 mg PO DAILY 02/06/24
meloxicam 15 mg tablet 15 mg PO DAILY 02/06/24
ondansetron HCl 4 mg tablet 4 mg PO Q8HPRN PRN nausea 02/06/24
peg 400-propylene glycol (PF) 0.4 1 drp BOTH EYES Q6HPRN PRN dry eyes 02/06/24
%-0.3 % eye drops in a dropperette
(Systane (PF))
rosuvastatin 20 mg tablet 20 mg PO DAILY 02/06/24
vitamin E 268 mg (400 unit) capsule 268 mg PO DAILY 02/06/24
Review of Systems
-
History Source: Patient
Constitutional: Reports Fatigue and Chills
EENT: Reports No Symptoms
Respiratory: Reports Trouble Breathing (Intermittent/chronic)
Cardiac: Reports No Symptoms
Abdomen/GI: Reports Abdominal Pain, Nausea, Vomiting, Constipated and Black Stools
: Reports No Symptoms
Musculoskeletal: Reports No Symptoms
Skin: Reports No Symptoms
Neurological: Reports No Symptoms
Vital Signs
Temp Pulse Resp BP Pulse Ox
98.2 F 72 18 165/85 97
02/06/24 16:20 02/07/24 08:02 02/07/24 08:02 02/07/24 07:14 02/07/24 08:02
Physical Exam
Exam
General: Well Developed and Other (Appears older than stated age, restless)
HEENT: Normocephalic and Atraumatic
Respiratory: Clear
Cardiac: S1/S2 and Regular Rhythm
Breast: Deferred by me
GI: Soft, Non Distended, Normal Bowel Sounds and Tender (+TTP mid epigastric area, with generalized tenderness throughout the abdomen)
Musculoskeletal: No Edema
Skin: Warm and Dry
Neuro: Awake, Alert and Oriented
Psych: Calm and Other (Restless)
Results
WBC 9.6 10^3/uL (4.8-10.8) 02/07/24 05:16
Hgb 11.9 g/dL (12.0-16.0) L 02/07/24 05:16
Hct 33.4 % (37.0-47.0) L 02/07/24 05:16
MCV 85.4 fL (81.0-99.0) 02/07/24 05:16
Plt Count 408 10^3/uL (130-400) H D 02/07/24 05:16
Absolute Neuts (auto) 5.9 10^3/uL (1.4-6.5) 02/07/24 05:16
Sodium 141 mmol/L (135-145) 02/07/24 05:16
Potassium 3.2 mmol/L (3.5-5.1) L 02/07/24 05:16
Chloride 106 mmol/L (98-107) 02/07/24 05:16
Carbon Dioxide 22 mmol/L (22-30) 02/07/24 05:16
BUN 20 mg/dl (7-17) H 02/07/24 05:16
Creatinine 0.6 mg/dL (0.6-1.0) 02/07/24 05:16
Calcium 8.6 mg/dl (8.4-10.2) 02/07/24 05:16
Total Bilirubin 0.7 mg/dl (0.2-1.3) 02/06/24 16:44
AST 221 U/L (14-36) H 02/06/24 16:44
ALT 77 U/L (0-35) H 02/06/24 16:44
Alkaline Phosphatase 52 U/L (38-126) 02/06/24 16:44
Lipase 150 U/L (23-300) 02/06/24 16:44
Diagnostic Image Results:
02/06/24 CT A/P w/IV only: IMPRESSION: Normal post cholecystectomy abdomen. Imaging for bowel pathology is limited by the lack of enteric contrast
Prior GI Procedures:
EGD: 03/30/2022 Dr. Dwyer: Normal esophagus. Small hiatal hernia. A single gastric polyp. Biopsied. Biopsies were taken with a cold forceps for Helicobacter pylori testing. Normal examined duodenum. Path negative
Colonoscopy: 2018 Dr. Saba: Preparation of the colon was fair. The examined portion of the ileum was normal. One 2 mm polyp at the ileocecal valve, removed with a jumbo cold forceps. Resected and retrieved. One 4 mm polyp in the ascending
colon, removed with a cold snare. Resected and retrieved. One 4 mm polyp at the hepatic flexure, removed with a cold snare. Resected and retrieved. Medium-sized lipoma at the hepatic flexure. Biopsied. One 2 mm polyp in the descending colon,
removed with a jumbo cold forceps. Resected and retrieved. One 2 mm polyp in the descending colon, removed with a jumbo cold forceps. Resected and retrieved. Three 1 to 2 mm polyps in the sigmoid colon, removed with a jumbo cold forceps.
Resected and retrieved. Three 1 to 2 mm polyps in the rectum, removed with a jumbo cold forceps. Resected and retrieved. Normal mucosa in the entire examined colon. Biopsied. Diverticulosis in the sigmoid colon and in the descending colon.
Internal hemorrhoids. path showing 3 tubular adenomas and the remaining polyps hyperplastic.
Assessment / Plan
-
The patient is a 59-year-old female with a past medical history significant for hypothyroidism, hypertension, GERD on chronic PPI, fibromyalgia with NSAID use, hyperlipidemia, type 2 diabetes, obesity on Mounjaro, anxiety, who presented to the "[facility] with complaints of intractable nausea and vomiting which we are are being asked to evaluate for. She reports her last Mounjaro shot earlier this week, and since Saturday has felt unwell with intractable nausea with vomiting. She notes that
after her right arm surgery in December she has been increasingly constipated as well. She notes she is taking increased use of NSAIDs with Advil and meloxicam intermittently for her right arm pain. She has not had a bowel movement in 4 to 5
days, but does report an episode of melena at home. She has had a similar hospitalization in 2021 after starting on Ozempic. EGD at that time did not show any concerning findings. Despite IM Tigan she continues to have nausea although without any
further vomiting. She is tolerating sips of clears. Her QTc has been prolonged therefore limiting use of other antiemetics.
Problem list:
-intractable nausea, vomiting
-reported melena with increased use of NSAID's
-Obestiy on Mounjaro
-prolonged QTc
-chronic GERD on BID PPI
-elevated BUN
-hypokalemia
-elevated AST/ALT
other pertinent medical hx:
-Hypothyroidism
-HTN
-fibromyalgia
-HLD
-DM2
-anxiety
Recommendations:
-Etiology of symptoms multifactorial, but likely secondary to Mounjaro with delayed gastric emptying versus gastritis versus peptic ulcer disease given increased use of NSAIDs versus infectious etiology such as gastroenteritis versus constipation
versus other.
-Will obtain an obstruction series to evaluate for stool burden. Reassuringly CT negative for obstruction or other acute etiology of the abdomen or pelvis.
-Will change Protonix to IV twice daily given her intractable nausea
-Follow her QTc interval
-I advised her to abstain from further use of Mounjaro or other GLP-1 agents given she is likely going to have recurrent symptoms. She will need to review this with her PCP after discharge.
-Pending her obstruction series may need to give Dulcolax suppository or enema if she has a significant stool burden
-To consider EGD today given her report of melena at home and with increased NSAID use and intractable nausea and vomiting symptoms since Saturday. Will discuss with Dr. Monsalve.
-Will keep her n.p.o. for now pending my discussion above
-Repeat LFTs today
-Avoid NSAIDs
-PRN Tigan IM
-She is overdue for colonoscopy with multiple polyps removed in 2018. This can be arranged outpatient.
-Further management pending above
-
-
Thank you for consultation and allowing me to participate in the patient's care. Please call the [facility] pick[facility] GI physician during the after hours with any questions or concerns.
[2024-02-07 09:10] LABS: ALT (SGPT) 66 U/L (0-35); AST (SGOT) 132 U/L (14-36); Albumin 3.8 g/dl (3.5-5.0); Alkaline Phosphatase 46 U/L (38-126); Total Bilirubin 0.5 mg/dl (0.2-1.3)
--- NOTE | 2024-02-07 09:21 | W.PN.HOSP.TC ---
Today's Communication/Plan
-
try IV ativan for nausea
stop injectable weight loss products
apprec GI
NPO/IVF
replete K
Assessment / Plan
Assessment / Plan
pt is a 59 year old female
Intractable N/V with abdominal Pain--likely due to Mounjaro (gastric dysmotility)--did not tolerate Ozempic either--stop Mounjaro--QTC too long for usual antiemetics--will try IV ativan--apprec GI--keep NPO--IVF--lipase WNL
Type 2 DM--may have some gastroparesis too on top of Mounjaro effects--will need another DM treatment plan--for weight loss--will refer to [employer]- Low SSI coverage as needed--check HGB A1C
Acute Transaminitis DDX acute ischemic liver injury-- Trend LFTs in response to IVF
Mild Hypokalemia-- Held HCTZ - Likely secondary to GI losses as noted above--replete
Essential Hypertension- elevated in the ED--likely due to acute distress / intractable nausea / etc - Continue outpatient antihypertensive regimen as able
Fibromyalgia- Stable-Continue outpatient med regimen.
Hypothyroidism-cont synthroid
DVT Prophylaxis: SCDs
Code status--Full code
Anticipated Discharge: > 48 hours
Subjective/Interval History
-
Date of Service: February 07, 2024
pt still with abdominal pain and nausea--dry heaves--nothing in her stomach
Objective Data
-
Labs:
Laboratory Results
02/07/24
05:16
WBC 9.6
Hgb 11.9 L
Hct 33.4 L
Plt Count 408 H D
Sodium 141
Potassium 3.2 L
Chloride 106
Carbon Dioxide 22
BUN 20 H
Creatinine 0.6
Glucose 89
Calcium 8.6
Total Bilirubin 0.5
AST 132 H
ALT 66 H
Alkaline Phosphatase 46
Vital Signs:
max temp for 24 hours
02/06/24
16:20
Temp 98.2 F
Vital Signs
Temp Pulse Resp BP Pulse Ox
98.2 F 72 18 165/85 98
02/06/24 16:20 02/07/24 08:02 02/07/24 08:02 02/07/24 07:14 02/07/24 08:54
Review of Systems
-
All other systems: Reviewed and negative
Abdomen/GI: Reports Abdominal Pain, Nausea and Vomiting
Physical Exam
-
General: Well Developed, Well Nourished, No Apparent Distress and Obese
HEENT: Normocephalic and Atraumatic; Negative Oxygen
Respiratory: Clear to Auscultation; Negative Wheezes or Rhonchi
Cardiac: Regular Rhythm and S1/S2; Negative Murmur
GI: Soft, Nondistended and Tender (midepigastric); Negative Normal Bowel Sounds (hypoactive)
Musculoskeletal: No Clubbing, No Cyanosis and No Edema
Skin: Warm
Neuro: Awake
Psych: Calm
[2024-02-07] MEDS: ATIVAN 0.5 MG IV (09:25)
[2024-02-07] MEDS: NSS (PRESERVATIVE FREE) 0.25 ML IV (09:25)
[2024-02-07] MEDS: NORVASC PO (11:02)
[2024-02-07] MEDS: SYNTHROID PO (11:02)
[2024-02-07] MEDS: TRANDATE PO ×2 (11:02→21:40)
[2024-02-07] MEDS: COZAAR PO (11:02)
[2024-02-07] MEDS: KCL 270 MEQ IV (11:07)
[2024-02-07] MEDS: PROTONIX IV 40 MG IV ×2 (11:07→20:03)
[2024-02-07] MEDS: NSS (PRESERVATIVE FREE) 10 ML IV ×2 (11:07→20:04)
[2024-02-07] MEDS: NSS 1000 IV ×2 (11:08→20:04)
--- NOTE | 2024-02-07 11:54 | CM ---
CM met with patient in room. Patient lives independently. Patient denied history of VN, SNF. Patient has a CPAP, but she 'doesn't use it'. Patient is active with her PCP. Patient uses [facility] for medication services.
PLAN: Home no needs.
[2024-02-07 12:02] LABS: Glucose - Point of Care 107 mg/dl (70-99)
[2024-02-07] MEDS: TORADOL 30 MG IV (12:16)
[2024-02-07] MEDS: ATIVAN 1 MG IV ×2 (13:35→20:03)
[2024-02-07] MEDS: NSS (PRESERVATIVE FREE) 0.5 ML IV (13:35)
[2024-02-07 16:00] LABS: Glucose - Point of Care 100 mg/dl (70-99)
--- NOTE | 2024-02-07 16:04 | PTCARENOTE ---
Pt with ongoing nausea, received Tigan earlier in the shift with no relief in symptoms. MD made aware and ativan was ordered, pt states the 1mg ativan seems to take the edge off quite a bit. Cannot have zofran due to long QT. Pt having generalized
aches and pains from dry heaving, also with a headache- 30mg IV toradol given. Pt now in GI lab for EGD.
[2024-02-07 17:14] LABS: Glucose - Point of Care 125 mg/dl (70-99)
--- NOTE | 2024-02-07 17:26 | PTCARENOTE ---
1700: Patient arrived to 2S. Patient stood and pivoted to the chair from the stretcher. Full head to toe assessment completed. Patient denies nausea at this time. R wrist cast intact from previous outpatient surgery. IVF running per order. Patient
on RA with SpO2 greater than 92%. Call fuentes within reach and bed in lowest position. Care ongoing.
[2024-02-07] MEDS: APRESOLINE 5 MG IV (18:39)
[2024-02-07 21:35] LABS: Glucose - Point of Care 107 mg/dl (70-99)
[2024-02-07] MEDS: TORADOL 15 MG IV (22:04)
[2024-02-08 03:30] VITALS: BP 163/96
[2024-02-08 05:33] LABS: Hematocrit 31.8 % (37.0-47.0); Hemoglobin 11.5 g/dL (12.0-16.0); Mean Corp Hgb Conc. 36.2 g/dL (33.0-37.0); Mean Corpuscular Hgb 29.6 pg (27.0-31.0); Mean Platelet Volume 8.6 fL (7.4-10.4); Platelet Count 396 10^3/uL (130-400); Red Blood Cell Count 3.88 10^6/uL (4.20-5.40); White Blood Cell Count 10.2 10^3/uL (4.8-10.8)
[2024-02-08] MEDS: NSS 1000 IV ×2 (05:43→17:13)
[2024-02-08] MEDS: APRESOLINE 5 MG IV ×2 (05:50→12:40)
[2024-02-08] MEDS: SYNTHROID PO (05:55)
[2024-02-08 05:58] LABS: ALT (SGPT) 60 U/L (0-35); AST (SGOT) 85 U/L (14-36); Albumin 3.7 g/dl (3.5-5.0); Alkaline Phosphatase 50 U/L (38-126); Blood Urea Nitrogen 11 mg/dl (7-17); Calcium 8.9 mg/dl (8.4-10.2); Carbon Dioxide 22 mmol/L (22-30); Chloride 103 mmol/L (98-107); Estimated Creatinine Clearance 104 ml/min; Glucose 97 mg/dl (70-99); Sodium 138 mmol/L (135-145); Total Bilirubin 0.6 mg/dl (0.2-1.3); eGFR > 60.00
[2024-02-08] MEDS: TORADOL 15 MG IV ×3 (06:46→21:02)
[2024-02-08] MEDS: ATIVAN 1 MG IV ×3 (06:46→20:45)
[2024-02-08] MEDS: SYMBICORT 80/4.5 MCG INHALER 2 PUFF INH ×2 (07:30→18:50)
[2024-02-08 07:40] VITALS: BP 177/87
[2024-02-08 07:46] LABS: Glucose - Point of Care 105 mg/dl (70-99)
[2024-02-08] MEDS: MIRALAX 17 GRAMS PO (08:10)
[2024-02-08] MEDS: PROTONIX IV 40 MG IV ×2 (08:12→20:34)
[2024-02-08] MEDS: NSS (PRESERVATIVE FREE) 10 ML IV ×2 (08:13→20:33)
[2024-02-08] MEDS: NORVASC PO (08:19)
[2024-02-08] MEDS: TRANDATE 300 MG PO ×2 (08:19→20:34)
[2024-02-08] MEDS: SENOKOT 8.6 MG PO (08:20)
[2024-02-08] MEDS: KCL 40 MEQ PO ×2 (08:21→12:39)
[2024-02-08] MEDS: COZAAR PO (08:26)
[2024-02-08] MEDS: NSS IV (08:29)
--- NOTE | 2024-02-08 10:09 | W.PN.HOSP.TC ---
Today's Communication/Plan
-
ADAT
IVF
Assessment / Plan
Assessment / Plan
pt is a 59 year old female
Intractable N/V with abdominal Pain--likely due to Mounjaro (gastric dysmotility)--did not tolerate Ozempic either--stop Mounjaro--QTC too long for usual antiemetics--will try IV ativan, one dose of rectal phenergan--apprec GI--ADAT--cont
IVF--lipase WNL
Type 2 DM--may have some gastroparesis too on top of Mounjaro effects--will need another DM treatment plan--for weight loss--will refer to [employer]- Low SSI coverage as needed--check HGB A1C
Acute Transaminitis DDX acute ischemic liver injury-- Trend LFTs in response to IVF
Mild Hypokalemia-- Held HCTZ - Likely secondary to GI losses as noted above--replete
Essential Hypertension- elevated in the ED--likely due to acute distress / intractable nausea / etc - Continue outpatient antihypertensive regimen as able
Fibromyalgia- Stable-Continue outpatient med regimen.
Hypothyroidism-cont synthroid
DVT Prophylaxis: SCDs
Code status--Full code
Anticipated Discharge: Within 24 hours
Subjective/Interval History
-
Date of Service: February 08, 2024
pt still nauseous
Objective Data
-
Labs:
Laboratory Results
02/08/24
05:19
WBC 10.2
Hgb 11.5 L
Hct 31.8 L
Plt Count 396
Sodium 138
Potassium 3.0 L
Chloride 103
Carbon Dioxide 22
BUN 11
Creatinine 0.6
Glucose 97
Calcium 8.9
Total Bilirubin 0.6
AST 85 H
ALT 60 H
Alkaline Phosphatase 50
Vital Signs:
max temp for 24 hours
02/07/24
23:35
Temp 99.5 F
Vital Signs
Temp Pulse Resp BP Pulse Ox
98.4 F 102 18 177/87 97
02/08/24 07:40 02/08/24 07:40 02/08/24 07:40 02/08/24 08:19 02/08/24 07:40
I&O
02/07/24 02/08/24 02/09/24
06:59 06:59 06:59
Intake Total 1110 / 1110
Balance 1110 / 1110
Review of Systems
-
All other systems: Reviewed and negative
Abdomen/GI: Reports Nausea
Physical Exam
-
General: Well Developed, Well Nourished and No Apparent Distress
HEENT: Normocephalic and Atraumatic
Respiratory: Clear to Auscultation; Negative Wheezes or Rhonchi
Cardiac: Regular Rhythm and S1/S2; Negative Murmur
GI: Soft, Nontender, Nondistended and Normal Bowel Sounds
Musculoskeletal: No Clubbing, No Cyanosis and No Edema
Neuro: Awake and Alert
[2024-02-08] MEDS: PHENERGAN 25 MG RECTAL (11:16)
[2024-02-08 11:31] LABS: Glycohemoglobin (HgbA1c) 5.8 % (4.0-5.6)
[2024-02-08 11:39] LABS: Glucose - Point of Care 138 mg/dl (70-99)
[2024-02-08 11:45] VITALS: BP 164/90
[2024-02-08 15:00] VITALS: BP 158/82
[2024-02-08 17:05] LABS: Glucose - Point of Care 88 mg/dl (70-99)
[2024-02-08 19:12] VITALS: BP 169/78
[2024-02-08 21:04] LABS: Glucose - Point of Care 105 mg/dl (70-99)
[2024-02-08] MEDS: AMBIEN 10 MG PO (22:27)
[2024-02-08 23:45] VITALS: BP 147/82
[2024-02-09 03:54] VITALS: BP 151/71
[2024-02-09] MEDS: SYNTHROID 75 MCG PO (05:29)
[2024-02-09] MEDS: NSS 1000 IV ×3 (05:30→18:26)
[2024-02-09 07:18] LABS: Glucose - Point of Care 91 mg/dl (70-99)
[2024-02-09 07:20] VITALS: BP 140/77
[2024-02-09] MEDS: SYMBICORT 80/4.5 MCG INHALER 2 PUFF INH ×2 (07:26→19:57)
[2024-02-09 08:37] LABS: Hematocrit 32.9 % (37.0-47.0); Hemoglobin 11.6 g/dL (12.0-16.0); Mean Corp Hgb Conc. 35.3 g/dL (33.0-37.0); Mean Corpuscular Hgb 29.6 pg (27.0-31.0); Mean Corpuscular Volume 83.9 fL (81.0-99.0); Mean Platelet Volume 8.9 fL (7.4-10.4); Platelet Count 386 10^3/uL (130-400); Red Blood Cell Count 3.92 10^6/uL (4.20-5.40); Red Cell Dist. Width 12.2 % (11.5-14.5); White Blood Cell Count 7.4 10^3/uL (4.8-10.8)
[2024-02-09 09:11] LABS: Blood Urea Nitrogen 13 mg/dl (7-17); Calcium 8.8 mg/dl (8.4-10.2); Carbon Dioxide 19 mmol/L (22-30); Chloride 104 mmol/L (98-107); Estimated Creatinine Clearance 104 ml/min; Glucose 79 mg/dl (70-99); Potassium 3.3 mmol/L (3.5-5.1); Sodium 137 mmol/L (135-145); eGFR > 60.00
[2024-02-09] MEDS: NSS (PRESERVATIVE FREE) 10 ML IV ×2 (09:18→20:25)
[2024-02-09] MEDS: COZAAR 100 MG PO (09:29)
[2024-02-09] MEDS: MIRALAX PO (09:30)
[2024-02-09] MEDS: TRANDATE 300 MG PO ×2 (09:30→20:28)
[2024-02-09] MEDS: NORVASC 10 MG PO (09:30)
[2024-02-09] MEDS: PROTONIX IV 40 MG IV ×2 (09:31→20:25)
[2024-02-09 11:10] VITALS: BP 164/80
[2024-02-09] MEDS: TORADOL 15 MG IV ×2 (11:27→18:25)
[2024-02-09] MEDS: ATIVAN 1 MG IV ×3 (11:28→22:34)
[2024-02-09 11:36] LABS: Glucose - Point of Care 169 mg/dl (70-99)
--- NOTE | 2024-02-09 11:54 | W.PN.HOSP.TC ---
Today's Communication/Plan
-
d/c if feels up to it
Assessment / Plan
Assessment / Plan
pt is a 59 year old female
Intractable N/V with abdominal Pain--likely due to Mounjaro (gastric dysmotility)--did not tolerate Ozempic either--stop Mounjaro--QTC too long for usual antiemetics-- one dose of rectal phenergan--apprec GI--ADAT--lipase WNL--if tolerates diet can
d/c
Type 2 DM--may have some gastroparesis too on top of Mounjaro effects--will need another DM treatment plan--for weight loss--will refer to [facility] [employer]- Low SSI coverage as needed--check HGB A1C
Acute Transaminitis DDX acute ischemic liver injury-- Trend LFTs in response to IVF
Mild Hypokalemia-- Held HCTZ - Likely secondary to GI losses as noted above--replete
Essential Hypertension- elevated in the ED--likely due to acute distress / intractable nausea / etc - Continue outpatient antihypertensive regimen as able
Fibromyalgia- Stable-Continue outpatient med regimen.
Hypothyroidism-cont synthroid
DVT Prophylaxis: SCDs
Code status--Full code
Anticipated Discharge: Today
Subjective/Interval History
-
Date of Service: February 09, 2024
nursing reports feels fine--pt says feels nauseous
Objective Data
-
Labs:
Laboratory Results
02/09/24
07:01
WBC 7.4
Hgb 11.6 L
Hct 32.9 L
Plt Count 386
Sodium 137
Potassium 3.3 L
Chloride 104
Carbon Dioxide 19 L
BUN 13
Creatinine 0.5 L
Glucose 79
Calcium 8.8
Vital Signs:
max temp for 24 hours
02/08/24
23:45
Temp 99.3 F
Vital Signs
Temp Pulse Resp BP Pulse Ox
97.6 F 88 18 164/80 97
02/09/24 11:10 02/09/24 11:10 02/09/24 11:10 02/09/24 11:10 02/09/24 11:10
I&O
02/08/24 02/09/24 02/10/24
06:59 06:59 06:59
Intake Total 1110 / 1110 4820 / 4820
Balance 1110 / 1110 4820 / 4820
Review of Systems
-
All other systems: Reviewed and negative
Abdomen/GI: Reports Nausea
Physical Exam
-
General: Well Developed, Well Nourished and Morbidly Obese
HEENT: Normocephalic and Atraumatic
Respiratory: Clear to Auscultation; Negative Wheezes or Rhonchi
Cardiac: Regular Rhythm and S1/S2; Negative Murmur
GI: Soft, Nontender, Nondistended and Normal Bowel Sounds
Musculoskeletal: No Clubbing, No Cyanosis and No Edema
Neuro: Awake and Alert
Psych: Calm
[2024-02-09] MEDS: KCL 40 MEQ PO (13:27)
--- NOTE | 2024-02-09 13:44 | CM ---
CM following re: d/c planning.
Pt for d/c today.
No d/c needs are anticipated.
Goal: return home.
[2024-02-09] MEDS: MAALOX PLUS 1 TABLET PO (14:55)
[2024-02-09] MEDS: TIGAN 200 MG IM (15:01)
[2024-02-09] MEDS: APRESOLINE 5 MG IV (15:08)
[2024-02-09 15:40] VITALS: BP 129/84
[2024-02-09 16:43] LABS: Glucose - Point of Care 118 mg/dl (70-99)
[2024-02-09 19:03] VITALS: BP 171/71
--- NOTE | 2024-02-09 20:14 | PTCARENOTE ---
pt appeared better in the morning no c/o nausea, stated 'I feel great'. ate breakfast and a couple hrs later wretched and dry heaved, never vomited, only spit. Maalox added at pt request, PRN meds given. Advised pt to sit up after meals and also try
to walk around, only laying in bed, educated on reasons. IVF restarted. comfort and cool washcloths offered. pt did eat some dinner, then c/o of a bad headache and requested Morphine for the headache, offered APAP, took PRN Ativan and Toradol. will
stay the night
[2024-02-09 21:29] LABS: Glucose - Point of Care 104 mg/dl (70-99)
[2024-02-09] MEDS: AMBIEN 10 MG PO (22:28)
[2024-02-10 00:04] VITALS: BP 115/68
[2024-02-10] MEDS: NSS 1000 IV ×2 (00:08→13:36)
[2024-02-10 03:34] VITALS: BP 147/83
[2024-02-10] MEDS: SYNTHROID 75 MCG PO (05:23)
[2024-02-10] MEDS: SYMBICORT 80/4.5 MCG INHALER 2 PUFF INH ×2 (07:22→20:07)
[2024-02-10 07:25] VITALS: BP 102/73
[2024-02-10 07:51] LABS: Glucose - Point of Care 89 mg/dl (70-99)
[2024-02-10] MEDS: TRANDATE PO (08:15)
[2024-02-10] MEDS: COZAAR PO (08:16)
[2024-02-10] MEDS: MIRALAX PO (08:19)
[2024-02-10] MEDS: NSS (PRESERVATIVE FREE) 10 ML IV ×2 (08:23→20:00)
[2024-02-10] MEDS: PROTONIX IV 40 MG IV ×2 (08:23→19:59)
[2024-02-10] MEDS: NORVASC PO (08:32)
--- NOTE | 2024-02-10 10:15 | CM ---
Reviewed the chart notes and spoke with the patient at the bedside. Patient is being discharged to home today with no additional needs being identified at this time. Patient's spouse will provide transportation home. CM continues to be available
to patient/family and is monitoring medical plan for needs at discharge.
Plan: Discharge to home today.
[2024-02-10] MEDS: TYLENOL 650 MG PO (10:58)
[2024-02-10 11:10] VITALS: BP 194/88
[2024-02-10 11:31] LABS: Glucose - Point of Care 135 mg/dl (70-99)
[2024-02-10] MEDS: ATIVAN 1 MG IV (11:41)
[2024-02-10] MEDS: COZAAR 100 MG PO (11:42)
[2024-02-10] MEDS: TRANDATE 300 MG PO ×2 (11:42→20:01)
[2024-02-10] MEDS: NSS (PRESERVATIVE FREE) 0.5 ML IV (11:42)
[2024-02-10] MEDS: NORVASC 10 MG PO (11:43)
--- NOTE | 2024-02-10 12:27 | W.PN.HOSP.TC ---
Today's Communication/Plan
-
see A/P
Assessment / Plan
Assessment / Plan
A/P:
# Intractable N/V with abdominal Pain, likely due to Mounjaro S/E (gastric dysmotility)
did not tolerate Ozempic either
stopped Mounjaro
QTC too long for usual antiemetics
s/p one dose rectal phenergan
check repeat EKG for QTC eval
apprec GI
ADAT, on carb control diet
Lipase WNL
# watery diarrhea per pt
check C diff and Norovirus
# Type 2 DM
may have some gastroparesis too on top of Mounjaro effects
refer to [employer] for weight loss
Continue low SSI coverage as needed
A1C 5.8%
# Acute Transaminitis , ?reactive
Trend LFTs
# Mild Hypokalemia
Likely secondary to GI losses
[employer] HCTZ held
Replete K
# Essential Hypertension
elevated in the ED
likely due to acute distress / intractable nausea / etc
Continue outpatient antihypertensive regimen as able
# Fibromyalgia, Stable
Continue outpatient med regimen.
# Hypothyroidism
cont synthroid
DVT Prophylaxis: SCDs
Code status--Full code
DW RN
Anticipated Discharge: Within 24 hours
Subjective/Interval History
-
Date of Service: February 10, 2024
Objective Data
-
Vital Signs:
Vital Signs
Temp Pulse Resp BP Pulse Ox
36.4 C 90 18 180/88 99
02/10/24 11:10 02/10/24 11:43 02/10/24 11:10 02/10/24 11:43 02/10/24 11:10
I&O
02/09/24 02/10/24 02/11/24
06:59 06:59 06:59
Intake Total 4820 / 4820 2950 / 2950
Balance 4820 / 4820 2950 / 2950
Review of Systems
-
All other systems: Reviewed and negative
Abdomen/GI: Reports Nausea
Physical Exam
-
General: Well Developed, Well Nourished and Obese
HEENT: Normocephalic and Atraumatic
Respiratory: Clear to Auscultation and Non Labored Respirations; Negative Wheezes, Rhonchi or Accessory Resp Muscle Use
Cardiac: Regular Rhythm and S1/S2; Negative Murmur
GI: Soft, Nontender, Nondistended and Normal Bowel Sounds
Musculoskeletal: No Clubbing, No Cyanosis and No Edema
Neuro: Awake and Alert
Psych: Calm
[2024-02-10] MEDS: MORPHINE SULFATE 1 MG IV ×2 (13:34→20:19)
[2024-02-10 15:33] VITALS: BP 156/86
[2024-02-10 16:58] LABS: Glucose - Point of Care 112 mg/dl (70-99)
--- NOTE | 2024-02-10 19:33 | PTCARENOTE ---
BP this am was 102/73 HR. BP meds held per parameters. At 1129 BP was 194/88 Manual was 180/88.Dr. Langford made aware. Morning meds given at this time per Dr. Langford. BP at 1530 was 156/86.
[2024-02-10 21:35] LABS: Glucose - Point of Care 103 mg/dl (70-99)
[2024-02-10] MEDS: AMBIEN 10 MG PO (22:00)
[2024-02-10 23:04] VITALS: BP 156/82
[2024-02-11] MEDS: NSS 1000 IV (00:40)
[2024-02-11] MEDS: SYNTHROID 75 MCG PO (05:16)
--- NOTE | 2024-02-11 06:15 | PTCARENOTE ---
Pt's morning EKG indicated NSR however the EKG was abnormal due to non-specific T wave abnormality and prolong QT/QTc. Pt did not take PRN Zofran overnight.
[2024-02-11 06:51] LABS: Hematocrit 32.4 % (37.0-47.0); Hemoglobin 11.5 g/dL (12.0-16.0); Mean Corp Hgb Conc. 35.5 g/dL (33.0-37.0); Mean Corpuscular Hgb 30.3 pg (27.0-31.0); Mean Corpuscular Volume 85.3 fL (81.0-99.0); Mean Platelet Volume 9.1 fL (7.4-10.4); Platelet Count 367 10^3/uL (130-400); White Blood Cell Count 8.5 10^3/uL (4.8-10.8)
[2024-02-11] MEDS: SYMBICORT 80/4.5 MCG INHALER 2 PUFF INH (07:25)
[2024-02-11 07:28] LABS: ALT (SGPT) 47 U/L (0-35); AST (SGOT) 45 U/L (14-36); Albumin 3.5 g/dl (3.5-5.0); Alkaline Phosphatase 48 U/L (38-126); Blood Urea Nitrogen 8 mg/dl (7-17); Calcium 8.9 mg/dl (8.4-10.2); Carbon Dioxide 21 mmol/L (22-30); Chloride 104 mmol/L (98-107); Estimated Creatinine Clearance 104 ml/min; Glucose 82 mg/dl (70-99); Potassium 3.1 mmol/L (3.5-5.1); Sodium 137 mmol/L (135-145); Total Bilirubin 0.5 mg/dl (0.2-1.3); Total Protein 5.7 g/dl (6.3-8.2); eGFR > 60.00
[2024-02-11 07:30] VITALS: BP 177/90
[2024-02-11 07:38] LABS: Magnesium 1.8 mg/dl (1.6-2.3)
[2024-02-11 08:06] LABS: Glucose - Point of Care 113 mg/dl (70-99)
[2024-02-11] MEDS: COZAAR 100 MG PO (09:05)
[2024-02-11] MEDS: NORVASC 10 MG PO (09:06)
[2024-02-11] MEDS: TRANDATE 300 MG PO (09:06)
[2024-02-11] MEDS: NSS (PRESERVATIVE FREE) 10 ML IV (09:07)
[2024-02-11] MEDS: PROTONIX IV 40 MG IV (09:07)
[2024-02-11] MEDS: MIRALAX PO (09:07)
[2024-02-11] MEDS: KCL 40 MEQ PO (10:46)
[2024-02-11 11:29] VITALS: BP 112/73
[2024-02-11 11:30] LABS: Glucose - Point of Care 128 mg/dl (70-99)
--- NOTE | 2024-02-11 11:36 | CM ---
Reviewed the chart notes and spoke with the patient at the bedside. Patient is hoping to be discharged to home today with no additional needs being identified at this time. Patient's spouse will provide transportation home. CM continues to be
available to patient/family and is monitoring medical plan for needs at discharge.
Plan: Discharge to home today.
--- NOTE | 2024-02-11 13:09 | W.PN.HOSP.TC ---
Addendum entered and electronically signed by Georgette Langford MD 02/11/24 13:58:
total DC time 36 min
Original Note:
Today's Communication/Plan
-
see A/P
Assessment / Plan
Assessment / Plan
A/P:
# Intractable N/V with abdominal Pain, likely due to Mounjaro S/E (gastric dysmotility)
did not tolerate Ozempic either
stopped Mounjaro
s/p one dose rectal phenergan
QTC has improved, ok to use zofran PRN
apprec GI
ADAT, on carb control diet
Lipase WNL
# watery diarrhea per pt, resolved
no further diarrhea
# Type 2 DM
may have some gastroparesis too on top of Mounjaro effects
refer to [employer] for weight loss
Continue low SSI coverage as needed
A1C 5.8%
# Acute Transaminitis , ?reactive, improving
Trend LFTs
# Hypokalemia
Likely secondary to GI losses
[employer] HCTZ held
Replete K
follow BMP outpt
# Essential Hypertension
elevated in the ED
likely due to acute distress / intractable nausea / etc
Continue outpatient antihypertensive regimen as able
# Fibromyalgia, Stable
Continue outpatient med regimen.
# Hypothyroidism
cont synthroid
DVT Prophylaxis: SCDs
Code status--Full code
DW RN
Anticipated Discharge: Today
Subjective/Interval History
-
Date of Service: February 11, 2024
Objective Data
-
Labs:
Laboratory Results
02/11/24
05:18
WBC 8.5
Hgb 11.5 L
Hct 32.4 L
Plt Count 367
Sodium 137
Potassium 3.1 L
Chloride 104
Carbon Dioxide 21 L
BUN 8
Creatinine 0.5 L
Glucose 82
Calcium 8.9
Total Bilirubin 0.5
AST 45 H
ALT 47 H
Alkaline Phosphatase 48
Vital Signs:
Vital Signs
Temp Pulse Resp BP Pulse Ox
36.6 C 84 18 112/73 98
02/11/24 11:29 02/11/24 11:29 02/11/24 11:29 02/11/24 11:29 02/11/24 11:29
I&O
02/10/24 02/11/24 02/12/24
06:59 06:59 06:59
Intake Total 2950 / 2950 2200 / 2200
Balance 2950 / 2950 2200 / 2200
Review of Systems
-
All other systems: Reviewed and negative
Abdomen/GI: Denies Nausea
Physical Exam
-
General: Well Developed, Well Nourished and Obese
HEENT: Normocephalic and Atraumatic
Respiratory: Clear to Auscultation and Non Labored Respirations; Negative Wheezes, Rhonchi or Accessory Resp Muscle Use
Cardiac: Regular Rhythm and S1/S2; Negative Murmur
GI: Soft, Nontender, Nondistended and Normal Bowel Sounds
Musculoskeletal: No Clubbing, No Cyanosis and No Edema
Neuro: Awake and Alert
Psych: Calm and Intact Judgement/Insight
Data Reviewed
-
Labs: Labs Reviewed by me
--- NOTE | 2024-02-11 13:49 | W.DCSUMMARY ---
Discharge Summary
Discharge Data
Date of Admission: 02/06/24
Date of Discharge: 02/11/24
-
Pending Results: No
Hospital Course
Principal Diagnosis:
Intractable nausea, vomiting with abdominal pain, likely due to Mounjaro side effect (gastric dysmotility)
Hypokalemia
Acute Transaminitis, likely reactive and improved
Chronic Diagnoses:�
[id number] diabetes
Essential Hypertension
Fibromyalgia, Stable
Hypothyroidism, on Synthroid
Consultations:�
Gastroenterology
Procedures:�
Upper endoscopy 02/07/2024 was unrevealing: Normal esophagus. No gross lesions in the entire stomach. Normal duodenal bulb, first portion of the duodenum and second portion of the duodenum. No specimens collected.
Clinical course:�
This is a 59-year-old female, with past medical history as stated above, who presented with nausea and vomiting.
Problem 1:
Intractable N/V with abdominal Pain, likely due to Mounjaro S/E (gastric dysmotility).
Of note, the patient also previously did not tolerate Ozempic.
She received Phenergan for symptomatic nausea due to prolonged QTc.
Repeat QTc level has improved, hence she is okay to use Zofran as needed.
She underwent upper endoscopy for nausea vomiting, and the result was unrevealing.
Her nausea and vomiting have significantly improved/resolved prior to discharge.
Problem 2:
Hypokalemia likely due to nausea vomiting.
Electrolyte was repleted during her hospital stay.
The patient can check outpatient BMP with result to her PCP in 1 week.
Problem 3:
Acute Transaminitis, likely reactive and improved.
Her AST and ALT were in the 40s on the day of discharge.
She can follow-up with her PCP for CMP.
As for the rest of her medical problems, they were stable during her hospital stay.
Discharge Plan
-
Patient Disposition: Home (Routine Discharge)
Discharge Diagnosis/Procedures: Intractable nausea and vomiting due to intolerance of Mounjaro;
Hypokalemia;
type 2 diabetes mellitus;
essential hypertension;
fibromyalgia;
hypothyroidism;
acute elevated LFT (likely reactive)
Condition: Fair
Diet: As tolerated and Diabetic, Carb Controlled
Activity: As tolerated
Driving Restrictions: As prior to admission
Bathing Restrictions: None
Blood Work: CMP in 1 week, result to your PCP
Referrals:
Sarah Erwin MD [Active] - in less than 1 week (for weight loss management)
Clay Goldman DO [Family Provider] - in less than 1 week
Additional Discharge Medication Instructions: stop HCTZ
stop Mourjano
Prescriptions:
Continued
zolpidem 10 MG tablet
10 mg PO HS
Patient Comments:
02/06/24: last filled 01/07/24 for 30 tablets over 30 days
fenofibrate nanocrystallized 145 MG tablet
145 mg PO HS
multivitamin with folic acid [Tab-A-Al] 1 TABLET tablet
1 tab PO DAILY
levothyroxine 75 mcg Tablet
75 mcg PO DAILY
amlodipine [Norvasc] 10 mg Tablet
10 mg PO DAILY
pantoprazole [Protonix] 40 mg Tablet,Delayed Release (Dr/Ec)
40 mg PO BID
losartan 100 mg Tablet
100 mg PO DAILY
labetalol 200 mg Tablet
300 mg PO BID
ondansetron HCl 4 mg Tablet
4 mg PO Q8HPRN PRN (Reason: nausea)
albuterol sulfate 90 mcg/actuation Hfa Aerosol Inhaler
1 inh INHALATION R Q4HPRN PRN (Reason: sob)
vitamin E 268 mg (400 unit) Capsule
268 mg PO DAILY
rosuvastatin 20 mg Tablet
20 mg PO DAILY
Systane (PF) 0.4-0.3 % Dropperette
1 drp BOTH EYES Q6HPRN PRN (Reason: dry eyes)
cholecalciferol (vitamin D3) [Vitamin D3] 25 mcg (1,000 unit) Tablet
25 mcg PO DAILY
budesonide-formoterol [Symbicort] 80-4.5 mcg/actuation Hfa Aerosol Inhaler
2 puff INHALATION R BID
Held
meloxicam 15 mg Tablet
15 mg PO DAILY
Hold Instructions: Do not restart until you are nausea and vomiting is resolved
Discontinued
hydrochlorothiazide 25 mg Tablet
25 mg PO DAILY
Mounjaro
10 mg SC DIRECTED
Discharge Orders:
Discharge Patient (As Directed); Ordered 02/11/24
Ordered By: Georgette Langford
Discharge Date and Time
Print Language: [place]ET[place]ESE
[2024-02-11] MEDS: KCL 20 MEQ PO (14:06)
== END 2024-02-11 15:18 | disposition home or self-care (01) ==
LOC: 2 SOUTH 22:54
PROVIDERS: Clinical Nurse Specialist Family Health; Internal Medicine; Nurse Practitioner; ADMITTING PHYSICIAN Internal Medicine; ATTENDING PHYSICIAN Internal Medicine; CONSULT PHYSICIAN Internal Medicine Gastroenterology; EMERGENCY PHYSICIAN Emergency Medicine; FAMILY PHYSICIAN Internal Medicine
DX: E11.43 Type 2 diabetes mellitus with diabetic autonomic (poly)neuropathy (principal); K31.84 Gastroparesis; R10.9 Unspecified abdominal pain; R11.2 Nausea with vomiting, unspecified; R07.9 Chest pain, unspecified; R53.1 Weakness; T38.3X5A Adverse effect of insulin and oral hypoglycemic [antidiabetic] drugs, initial encounter; Y92.9 Unspecified place or not applicable; J45.909 Unspecified asthma, uncomplicated; M79.601 Pain in right arm; K92.1 Melena; R94.31 Abnormal electrocardiogram [ECG] [EKG]; R19.7 Diarrhea, unspecified; K58.9 Irritable bowel syndrome, unspecified; E78.00 Pure hypercholesterolemia, unspecified; E87.6 Hypokalemia; I10 Essential (primary) hypertension; E03.9 Hypothyroidism, unspecified; K21.9 Gastro-esophageal reflux disease without esophagitis; Z79.85 Long-term (current) use of injectable non-insulin antidiabetic drugs; F32.A Depression, unspecified; G47.33 Obstructive sleep apnea (adult) (pediatric); E66.09 Other obesity due to excess calories; F41.9 Anxiety disorder, unspecified; Z90.710 Acquired absence of both cervix and uterus; M79.7 Fibromyalgia; R74.01 Elevation of levels of liver transaminase levels; F12.90 Cannabis use, unspecified, uncomplicated; M19.90 Unspecified osteoarthritis, unspecified site; Z68.32 Body mass index [BMI] 32.0-32.9, adult; Z90.49 Acquired absence of other specified parts of digestive tract; Z60.2 Problems related to living alone; Z87.891 Personal history of nicotine dependence; Z83.3 Family history of diabetes mellitus; Z82.49 Family history of ischemic heart disease and other diseases of the circulatory system; Z88.8 Allergy status to other drugs, medicaments and biological substances; Z79.890 Hormone replacement therapy; Z79.891 Long term (current) use of opiate analgesic
CPT/HCPCS: 43235; 71046; 74022; 74177; 80048; 80053; 82248; 82962; 83036; 83690; 83735; 84484; 85025; 85027; 93005; 94640; 96361; 96365; 96366; 96375; 99285; G0378; Q9967

== ENCOUNTER → 2024-05-12 12:27 | Outpatient (REF) | payer BC, SELFPAY | LOC: HWWDC 12:27 | PROVIDERS: ATTENDING PHYSICIAN Internal Medicine | DX: Z12.31 Encounter for screening mammogram for malignant neoplasm of breast (principal) | CPT/HCPCS: 77063; 77067 ==

== ENCOUNTER 2024-11-20 22:23 | Emergency (ER) | payer BC, SELFPAY ==
[2024-11-20 22:26] VITALS: BP 165/109
[2024-11-20 22:43] VITALS: BP 162/89
[2024-11-20 23:00] VITALS: BP 176/92
--- NOTE | 2024-11-20 23:03 | ED.GENMED ---
History of Present Illness
General
Chief Complaint: Chest Pain
Source: patient
Exam Limitations: none
Time Seen by Provider: 11/20/24 22:46
History of Present Illness
History of Present Illness:
59-year-old female with history of asthma hypertension presents complaining of intermittent sharp pain to the right mid abdomen that radiates from the back to the front. She describes a pressure in her pelvis when this happens. An urge to urinate
when this happens. Prior surgical history includes cholecystectomy and partial hysterectomy. She is an insulin-dependent diabetic. No blood in her stool. No vomiting or diarrhea. The pain medication makes her short of breath however the pain is
not made worse with deep breathing. At the current time she denies any chest pain.
Past History
Past History
ED Past Medical History: Asthma, HTN, Hypercholesterolemia, Hypothyroidism and Other (IBS)
ED Past Surgical History: Cholecystectomy, Gynecological (Partial Hysterectomy) and Orthopedic
Social History
Tobacco: Former smoker
Alcohol: None
Drug: None
Personal:
Living: with family
Employment: Employed
Phy Exam
Physical Exam
Physical Exam:
General: Well-appearing anxious female no acute respiratory distress
HEENT normocephalic atraumatic
Heart: Regular rate and rhythm
Lungs: Clear no wheeze
Abdomen is soft tender to the right mid abdomen no guarding or rebound nondistended mild right costovertebral angle tenderness
Skin is warm no rash
Scores
Heart Score for Chest Pain Patients
STEMI patient?: No
History: Slightly or Non-Suspicious
ECG: Normal
Age: >45 - <65 years
Risk Factors: 1 or 2 Risk Factors
Troponin: </= Normal Limit
Heart Score for Chest Pain Patients: 2
Heart Score Risk: 2.5% MACE over next 6 weeks
Course
Orders/Labs/Results
Orders:
Orders
11/20/24 22:29
Electrocardiogram (*1) Urgent
Reason for Study: Chest Pain
EKG- Treatment ONCE
11/20/24 23:01
Ketorolac [Toradol] 15 mg IV NOW STA
11/20/24 23:22
Complete Blood Count/With Diff Urgent
Comprehensive Metabolic Panel Urgent
Lipase Urgent
Troponin I Urgent
11/20/24 23:23
Urinalysis Reflex To Culture Urgent
Date Specimen was Collected: 11/20/24
Time Specimen was Collected: 23:22
Urine Microscopic Reflex Cult Urgent
Urine Culture Urgent
OSCAR Source: U
Specimen Description:
Date Specimen was Collected: 11/20/24
Time Specimen was Collected: 23:22
11/21/24 00:02
CT Abd/pelvis W Iv Cont Urgent
Reason For Exam: right abdominal pain
Abnormal Lab Results
11/20/24 11/20/24
23:22 23:23
Absolute Monos (auto) 0.9 H 10^3/uL
(0.1-0.6)
Monocytes % 10.7 H %
(1.7-9.3)
BUN 19 H mg/dl
(7-17)
Calcium 10.4 H mg/dl
(8.4-10.2)
Leukocyte Esterase Rfl 1+ A
(Negative)
11/20/24 23:22
11/20/24 23:22
Vital Signs
Initial and Last Documented VS:
Initial Vital Signs
Temp Pulse Resp BP Pulse Ox
98 F 76 16 165/109 95
11/20/24 22:26 11/20/24 22:26 11/20/24 22:26 11/20/24 22:26 11/20/24 22:26
Last Documented Vital Signs
Temp Pulse Resp BP Pulse Ox
98 F 76 16 165/109 95
11/20/24 22:26 11/20/24 22:26 11/20/24 22:26 11/20/24 22:26 11/20/24 23:05
MDM/Problems Addressed
Differential Diagnosis Includes:
Right mid abdominal pain. Consider constipation versus renal colic versus colitis versus bowel obstruction or UTI versus appendicitis
Check labs. EKG performed through triage shows normal sinus rhythm without ischemic changes with a rate of 83.
Toradol ordered for pain. CT pending
*Pulse Oximetry
SaO2: 95
Oxygen Mode of Delivery: Room air
Patient hypoxic: no
*Critical Care Note
Total Time (30-74mins, 75-104mins- exclusive of procedures): Not Applicable
Update Note
Update Note:
CT demonstrates mild colon wall thickening of the left side of the colon to suggest colitis. Patient does endorse loose stools. She denies any bloody stools. Will cover with Augmentin. Labs reviewed without significant finding. Patient feeling
somewhat better after fluids and Toradol. Stable for discharge
ED Attending Note
-
Portions of this chart may have been created with voice recognition software.� Occasional wrong word or��sound alike� substitutions may have occurred due to the inherent limitations of voice recognition software.
Discharge Plan
Departure
Patient Disposition: Home (Routine Discharge)
Date of Disposition: 11/21/24
Time of Disposition: 01:54
Patient with high blood pressure during this ER visit?: No
Discharge Problem:
Colitis
Instructions: Colitis
Prescriptions:
New
amoxicillin-pot clavulanate 875-125 mg tablet
1 tab PO BID Qty: 14 0RF
No Action
zolpidem 10 MG tablet
10 mg PO HS
Patient Comments:
02/06/24: last filled 01/07/24 for 30 tablets over 30 days
fenofibrate nanocrystallized 145 MG tablet
145 mg PO HS
multivitamin with folic acid [Tab-A-Al] 1 TABLET tablet
1 tab PO DAILY
levothyroxine 75 mcg Tablet
75 mcg PO DAILY
amlodipine [Norvasc] 10 mg Tablet
10 mg PO DAILY
pantoprazole [Protonix] 40 mg Tablet,Delayed Release (Dr/Ec)
40 mg PO BID
losartan 100 mg Tablet
100 mg PO DAILY
labetalol 200 mg Tablet
300 mg PO BID
meloxicam 15 mg Tablet
15 mg PO DAILY
ondansetron HCl 4 mg Tablet
4 mg PO Q8HPRN PRN (Reason: nausea)
albuterol sulfate 90 mcg/actuation Hfa Aerosol Inhaler
1 inh INHALATION R Q4HPRN PRN (Reason: sob)
vitamin E 268 mg (400 unit) Capsule
268 mg PO DAILY
rosuvastatin 20 mg Tablet
20 mg PO DAILY
Systane (PF) 0.4-0.3 % Dropperette
1 drp BOTH EYES Q6HPRN PRN (Reason: dry eyes)
cholecalciferol (vitamin D3) [Vitamin D3] 25 mcg (1,000 unit) Tablet
25 mcg PO DAILY
budesonide-formoterol [Symbicort] 80-4.5 mcg/actuation Hfa Aerosol Inhaler
2 puff INHALATION R BID
Ativan
0.5 mg PO DAILY
Lexapro
0.5 mg PO DAILY
Referrals:
Clay Goldman DO [Family Provider, Internal Medicine]
Activity Restrictions/Additional Instructions:
Treat plenty clear liquids. Start with a bland diet. Use antibiotic as directed. Return if worse otherwise follow-up with your doctor
Interventions
Interventions:
*Risk Screen - Suicide Last Done: 11/20/24 22:26
*General Assessment Last Done: 11/20/24 22:26
*Neglect/Abuse Screening Last Done: 11/20/24 22:26
*ED- Fall Risk Assessment Last Done: 11/20/24 22:26
*ED COVID-19 Vaccine History Last Done: 11/20/24 22:26
ED- Cardiac Assessment Last Done: 11/20/24 23:04
Discharge Date and Time
Print Language: VENEZ[place]
[2024-11-20 23:16] VITALS: BMI 34.1
[2024-11-20] MEDS: TORADOL 15 MG IV (23:19)
[2024-11-20 23:32] LABS: Hematocrit 38.7 % (37.0-47.0); Hemoglobin 13.0 g/dL (12.0-16.0); Mean Corp Hgb Conc. 33.6 g/dL (33.0-37.0); Mean Corpuscular Volume 86.4 fL (81.0-99.0); Nucleated Red Blood Cells % 0 %; Platelet Count 342 10^3/uL (130-400); Red Cell Dist. Width 12.5 % (11.5-14.5)
[2024-11-20 23:37] LABS: Urine Character Clear (Clear)
[2024-11-20 23:48] LABS: ALT (SGPT) 29 U/L (0-35); AST (SGOT) 33 U/L (14-36); Albumin 4.7 g/dl (3.5-5.0); Alkaline Phosphatase 76 U/L (38-126); Blood Urea Nitrogen 19 mg/dl (7-17); Calcium 10.4 mg/dl (8.4-10.2); Carbon Dioxide 23 mmol/L (22-30); Chloride 107 mmol/L (98-107); Estimated Creatinine Clearance 80 ml/min; Glucose 94 mg/dl (70-99); Lipase 198 U/L (23-300); Potassium 3.7 mmol/L (3.5-5.1); Sodium 140 mmol/L (135-145); Total Protein 7.3 g/dl (6.3-8.2); eGFR > 60.00
[2024-11-20 23:51] LABS: Urine Squamous Cell 26-30 /LPF (Few)
[2024-11-20 23:56] LABS: Troponin I < 0.012 ng/ml
[2024-11-20 23:57] LABS: Urine Red Blood Cell None Seen /HPF (0-2)
[2024-11-21] VITALS: BP 148/75
[2024-11-21 00:39] VITALS: BP 155/70
[2024-11-21 01:00] VITALS: BP 147/63
[2024-11-21 02:12] VITALS: BP 147/63
== END 2024-11-21 02:14 | disposition home or self-care (01) ==
LOC: EMR 22:23
PROVIDERS: Physician Assistant; EMERGENCY PHYSICIAN Emergency Medicine; FAMILY PHYSICIAN Internal Medicine
DX: K52.9 Noninfective gastroenteritis and colitis, unspecified (principal); J45.909 Unspecified asthma, uncomplicated; I10 Essential (primary) hypertension; E78.00 Pure hypercholesterolemia, unspecified; E03.9 Hypothyroidism, unspecified; E11.9 Type 2 diabetes mellitus without complications; Z87.891 Personal history of nicotine dependence; Z90.49 Acquired absence of other specified parts of digestive tract
CPT/HCPCS: 99284; 96374; 74177; 80053; 81003; 81015; 83690; 84484; 85025; 87086; 93005; Q9967